=== PATIENT | male | born 1950 | race Caucasian/White ===

== ENCOUNTER → 2016-08-09 | Outpatient (CLI) | payer MEDICARE ==
[2016-08-09 09:15] LABS: Basophils % (A) 1 %; CH 33.2; CHCM 34.2; Eosinophils # (A) 0.1 k/uL (0-0.7); Eosinophils % (A) 3 %; HCT 39.4 % (39.0-53.0); HGB 12.8 gm/dL (13.0-17.5); Luc # (Auto) 0.11; Luc % (Auto) 2; Lymphocytes # (A) 1.1 k/uL (1.0-4.8); Lymphocytes % (A) 23 %; MCH 31.6 pg (25.0-35.0); MCHC 32.4 g/dL (31.0-37.0); MCV 97.5 fL (80.0-100.0); Mean Platelet Volume 7.4; Monocytes # (A) 0.3 k/uL (0-1.0); Monocytes % (A) 7 %; Neutrophils # (A) 3.1 k/uL (1.3-7.7); Neutrophils % (A) 65 %; RBC 4.04 m/uL (4.30-5.90); RDW 13.1 % (11.5-15.5); WBC 4.8 k/uL (3.8-10.6); WBC (Perox) 5.35
[2016-08-09 09:52] LABS: Anion Gap 5 mmol/L; Blood Urea Nitrogen 13 mg/dL (9-20); Carbon Dioxide 29 mmol/L (22-30); Chloride 102 mmol/L (98-107); Non-African American GFR(MDRD) >60 (>60 ml/min/1.73 sqM); Potassium 5.1 mmol/L (3.5-5.1); Sodium 136 mmol/L (137-145)
== END | disposition home or self-care (01) ==
LOC: LABPAT 08:30
PROVIDERS: ATTEND Internal Medicine Cardiovascular Disease
DX: Z01.812 Encounter for preprocedural laboratory examination (principal); E78.2 Mixed hyperlipidemia; R07.2 Precordial pain
CPT/HCPCS: 36415; 80051; 80061; 82565; 84450; 84460; 84520; 85025

== ENCOUNTER → 2016-08-09 | Outpatient (CLI) | payer MEDICARE ==
[2016-08-09 09:52] LABS: ALT 32 U/L (21-72); AST 20 U/L (17-59); Cholesterol 166 mg/dL (<200); HDL Cholesterol 84 mg/dL (40-60); Triglycerides 69 mg/dL (<150)
== END | disposition home or self-care (01) ==
LOC: LABWHC1 08:25
PROVIDERS: ATTEND Internal Medicine Cardiovascular Disease
DX: E78.2 Mixed hyperlipidemia (principal); R07.2 Precordial pain
CPT/HCPCS: 36415; 80061; 84450; 84460

== ENCOUNTER 2016-08-17 06:15 | Day surgery (SDC) | payer MEDICARE ==
[2016-08-14 16:37] VITALS: BMI 27.1
[~2016-08-17 06:15] MED LIST: ALPRAZolam 0.25 MG TAB PO PRN; ASPIRIN 325 MG TAB PO ONE; SODIUM CHLORIDE 0.9% 1,000 ML in EMPTY BAG 1 BAG IV ONE
[2016-08-17] MEDS ORDERED: LIDOCAINE 2% INJ 20 MG/ML (20 ML MDV) ONE (07:13)
[2016-08-17] MEDS ORDERED: MIDAZOLAM 2 MG/2 ML VIAL ONE ×2 (07:15→08:10)
[2016-08-17] MEDS: MIDAZOLAM 2 MG/2 ML VIAL IV ONE ×2 (07:28→08:01)
[2016-08-17] MEDS ORDERED: BIVALIRUDIN BOLUS 250 MG/50 ML IV ONE (07:52)
[2016-08-17] MEDS ORDERED: BIVALIRUDIN 250 MG in SODIUM CHLORIDE 0.9% 50 ML IV ONE (07:53)
[2016-08-17] MEDS ORDERED: PRASUGREL 10 MG TAB ONE (08:02)
[2016-08-17] MEDS: NITROGLYCERIN 1000MCG/10ML SYRINGE INTRACORON ONE ×2 (08:04→08:19)
[2016-08-17] MEDS ORDERED: PRASUGREL 10 MG TAB PO ONE (08:06)
[2016-08-17] MEDS ORDERED: MIDAZOLAM 2 MG/2 ML VIAL IV ONE (08:11)
[2016-08-17] MEDS ORDERED: SODIUM CHLORIDE 0.9% (PF) 10 ML VIAL ONE (08:17)
[2016-08-17] MEDS ORDERED: niCARdipine 25 MG/10 ML VIAL ONE (08:17)
[2016-08-17] MEDS ORDERED: niCARdipine Syringe (1,000 mcg/10 mL) INTRACORON ONE (08:19)
--- NOTE | 2016-08-17 08:21 | CC ---
DATE OF SERVICE: INDICATION: Chest pressure with abnormal stress test showing ischemia in LAD distribution. PROCEDURE NOTE: After obtaining informed consent, left heart catheterization and coronary angiogram were performed via the right femoral artery using standard Sonny catheters. Patient tolerated the procedure well without any obvious immediate complications. FINDINGS: 1. HEMODYNAMICS: Left ventricular end-diastolic pressure is 14 to 16 mm. There is no significant gradient across the aortic valve. 2. LEFT VENTRICULOGRAM: Left ventriculogram was not performed. 3. ANGIOGRAPHIC DATA: Left main coronary artery: Left main coronary artery is normal, ( ) is free of stenosis. It divides into left anterior descending coronary artery and circumflex coronary artery. LAD shows a 70% to 80% stenosis in its mid portion. Circumflex coronary artery and its branches are free of significant stenosis. Right coronary artery is a large dominant vessel and is free of stenosis. CONCLUSIONS: A 70% to 80% stenosis of mid left anterior descending coronary artery. PLAN: The patient has symptoms ischemia in LAD and has a lesion in LAD. Dr. Nance the on-call employee benefits manager, will perform angioplasty of the same.
--- NOTE | 2016-08-17 08:23 | LTR ---
August 17, 2016 TRIPP HUNG DO RE: Donta Chakraborty Dear Dr. Hung: I performed a cardiac catheterization on Donta Chakraborty. A detailed catheterization note is enclosed for your records. In brief, Mr. Chakraborty had exertional chest pain and abnormal stress showing ischemia and LAD distribution and cardiac catheterization shows a 70% to 80% stenosis in mid LAD and he will have angioplasty and stent placement of the same. Thank you for giving us the privilege to participate in the care of this pleasant gentleman. Sincerely, TING WHITE MD
[2016-08-17] MEDS ORDERED: RX INFO: IV CONTRAST WAS GIVEN 1 EACH MISC MISCELLANE PRN (08:29)
[2016-08-17] MEDS ORDERED: MAG HYDROX/AL HYDROX/SIMETH 30 ML CUP PO PRN (08:29)
[2016-08-17] MEDS ORDERED: NITROGLYCERIN SL TABS 0.4 MG TAB SUBLINGUAL PRN (08:29)
[2016-08-17] MEDS ORDERED: ZOLPIDEM 5 MG TAB PO PRN (08:29)
[2016-08-17] MEDS ORDERED: IOHEXOL 350 MG/ML 100 ML BOTTLE INJ ONE (08:30)
[2016-08-17] MEDS ORDERED: SODIUM CHLORIDE 0.9% 1,000 ML IV SCH (08:30)
[2016-08-17] MEDS: CITALOPRAM HYDROBROMIDE 20 MG TAB PO SCH (09:39)
[2016-08-17] MEDS: ASPIRIN 325 MG TAB PO SCH (09:39)
[2016-08-17] MEDS: LISINOPRIL 20 MG TAB PO SCH (09:39)
[2016-08-17] MEDS: HYDROCHLOROTHIAZIDE 25 MG TAB PO SCH (09:39)
[2016-08-17] MEDS: amLODIPine 5 MG TAB PO SCH (09:39)
--- NOTE | 2016-08-17 10:21 | PTCA ---
DATE OF SERVICE: 08/17/2016 PERCUTANEOUS CORONARY INTERVENTION PERFORMING PHYSICIAN: Zain Nance MD, anesthesiologist and critical care. PROCEDURE PERFORMED: 1. Successful stenting of the proximal left anterior descending artery using 2.5 x 15 mm Xience ORIN which was postdilated using 3 mm noncompliant balloon with a good angiographic result. 2. Intravascular ultrasound (IVUS) of the left anterior descending artery. INDICATION: This is a pleasant 66-year-old gentleman with hypertension who sees Dr. Bhandari who was experiencing chest discomfort and underwent a stress test showed ischemia in the anterior wall. APPROACH: Right common femoral artery. COMPLICATIONS: None. LEVEL OF SEDATION: Moderate. PROCEDURE DESCRIPTION: Please refer to diagnostic heart catheterization that was performed by Dr. Bhandari. After the diagnostic heart catheterization was performed, we decided to pursue with intervention on the left anterior descending artery. Anticoagulation was initiated using Angiomax. Subsequently, I took XB35 LAD guide and the left main was engaged. A run-through wire was used to wire the left anterior descending artery. Subsequently I did direct stenting on the lesion using 2.5 x 20 x 15 mm Xience ORIN, where the stent was positioned under fluoroscopy guidance and it was deployed. The following angiogram showed that the stent seems to be slightly undersized so I postdilated using 2.75 mm noncompliant balloon which was inflated under 18 atmospheres for 20 seconds. I did after that intravascular ultrasound (IVUS) of the LAD, which showed that the stent was not well ( ) to the wall. At that point, I decided to post dilate using 3 mm noncompliant balloon which was advanced over the wire and the balloon was inflated under 18 atmospheres for another 20 seconds. After that, I did intravascular ultrasound again which showed that the stent was well ( ) to the wall. At that point, I decided to stop. The following angiogram showed good angiographic results without perforation and without dissection with excellent flow. The procedure was completed without any complication. Postprocedure management will be: 1. Dual antiplatelet therapy. 2. Risk factor modifications. 3. Follow up with the patient.
[2016-08-17 16:56] LABS: Glucose,Whole Blood 84 mg/dL (75-99)
[2016-08-17] MEDS: cloNIDine HCL 0.1 MG TAB PO SCH ×2 (20:21→21:57)
[2016-08-17] MEDS ORDERED: ATORVASTATIN 80 MG TAB PO SCH (21:00)
[2016-08-18 02:34] VITALS: RESP 18
[2016-08-18 06:14] LABS: Non-African American GFR(MDRD) >60 (>60 ml/min/1.73 sqM)
[2016-08-18] MEDS: HYDROCHLOROTHIAZIDE 25 MG TAB PO SCH (08:18)
[2016-08-18] MEDS: amLODIPine 5 MG TAB PO SCH (08:18)
[2016-08-18] MEDS: CITALOPRAM HYDROBROMIDE 20 MG TAB PO SCH (08:18)
[2016-08-18] MEDS: LISINOPRIL 20 MG TAB PO SCH (08:18)
[2016-08-18] MEDS: ASPIRIN 325 MG TAB PO SCH (08:19)
[2016-08-18 08:36] LABS: Basophils % (A) 0 %; CH 33.2; Eosinophils # (A) 0.1 k/uL (0-0.7); Eosinophils % (A) 1 %; HCT 39.9 % (39.0-53.0); HDW 2.28; HGB 13.5 gm/dL (13.0-17.5); Luc # (Auto) 0.15; Luc % (Auto) 2; Lymphocytes # (A) 1.2 k/uL (1.0-4.8); Lymphocytes % (A) 16 %; MCH 33.3 pg (25.0-35.0); MCV 98.1 fL (80.0-100.0); Monocytes # (A) 0.4 k/uL (0-1.0); Monocytes % (A) 6 %; Neutrophils # (A) 5.5 k/uL (1.3-7.7); Neutrophils % (A) 74 %; RBC 4.06 m/uL (4.30-5.90); RDW 13.1 % (11.5-15.5); WBC 7.4 k/uL (3.8-10.6); WBC (Perox) 7.92
[2016-08-18] MEDS ORDERED: PRASUGREL 10 MG TAB PO SCH (09:00)
[2016-08-18] MEDS ORDERED: ATENOLOL 12.5 MG TAB PO SCH (10:30)
[2016-08-18 11:28] VITALS: BP 143/87; PULSE 57; TEMP 97.8
[2016-08-18 12:07] LABS: Glucose,Whole Blood 115 mg/dL (75-99)
--- NOTE | 2016-08-19 10:18 | DS ---
DATE OF ADMISSION: 08/17/2016 DATE OF DISCHARGE: 08/18/2016 PROCEDURES PERFORMED: 1. Left heart catheterization. 2. Angioplasty with stent placement of left anterior descending. HOSPITAL COURSE: A 66-year-old gentleman who presented to me with symptoms of unstable angina and an abnormal stress test that showed ischemia in LAD distribution. The patient underwent cardiac catheterization that revealed significant stenosis involving mid left anterior descending artery for which he underwent angioplasty with drug eluting stent placement. The patient had developed a hematoma in the groin last night, which they put pressure on and obtained hemostasis. This morning he is free of symptoms, ambulating without any problems. On exam, afebrile. Heart rate is 60 beats per minute, blood pressure is 150/80, respirations 18, O2 sat is 98%. There is no jugular venous distention. Chest exam reveals good air entry bilaterally. Heart exam reveals first and second heart sounds. No gallop. No murmur. Abdomen is soft. Exam of the extremities did not reveal any edema. Peripheral pulses are felt. Right groin shows a hematoma. There is no bruit. No pulsatile masses. It is nontender. Foot pulses intact. He had a creatinine checked this morning, that appears normal and EKG is pending. ASSESSMENT: 1. Coronary artery disease, status post angioplasty of left anterior descending. 2. Right groin hematoma. DISCHARGE MEDICATIONS: Patient will go home on: 1. Norvasc 5 mg daily. 2. Lisinopril 20 mg daily. 3. Celexa. 4. Hydrochlorothiazide 25 mg daily. 5. Catapres. 6. Effient 10 mg daily. 7. Sublingual nitroglycerin p.r.n. basis. 8. Atorvastatin 80 mg daily. 9. Aspirin. FOLLOW-UP: Patient will be seen in my office in a week's time. I will discharge him home later this afternoon if he is able to ambulate and the groin hematoma remains stable and the CBC shows that there is no drop in hemoglobin.
== END 2016-08-18 13:01 | disposition home or self-care (01) ==
LOC: CATHCVL 06:15 → 6SEL 08:23 → CATHCVL 08-18 13:01
PROVIDERS: ATTEND Internal Medicine Cardiovascular Disease
DX: I25.110 Atherosclerotic heart disease of native coronary artery with unstable angina pectoris (principal); E78.2 Mixed hyperlipidemia; I11.9 Hypertensive heart disease without heart failure; Z79.899 Other long term (current) drug therapy; Z87.891 Personal history of nicotine dependence; Z82.49 Family history of ischemic heart disease and other diseases of the circulatory system; Z79.1 Long term (current) use of non-steroidal anti-inflammatories (NSAID); Z79.82 Long term (current) use of aspirin
CPT/HCPCS: 92978; 93458; 82565; 85025; C9600; C1887; C1725 ×2; C1894; C1753; C1874; C1769; J2250; Q9967; J0583

== ENCOUNTER → 2016-09-05 | Outpatient (CLI) | payer MEDICARE ==
--- NOTE | 2016-09-05 10:01 | US ---
EXAMINATION TYPE: US lower ext pseudo artery RT DATE OF EXAM: 09/05/2016 9:36 AM COMPARISON: NONE CLINICAL HISTORY: T14.8 Hematoma Right Side. Heart cath done 1 week ago, bruising and tender now TECHNOLOGIST IMPRESSION: Normal appearing vessels seen within right groin, no obvious pseudoaneurysm , hematoma or AV fistula noted. No abnormal fluid collection is seen to suggest hematoma. No suspicious outpouching is seen to sugges t pseudoaneurysm. No suspicious arterial venous communication is seen to suggest fistula. IMPRESSION: As above
== END | disposition home or self-care (01) ==
LOC: RADUSWWP 07:57
PROVIDERS: ATTEND Internal Medicine Cardiovascular Disease
DX: I72.9 Aneurysm of unspecified site (principal); I77.0 Arteriovenous fistula, acquired
CPT/HCPCS: 93975

== ENCOUNTER → 2017-11-02 | Outpatient (CLI) | payer MEDICARE ==
[2017-11-02 08:36] LABS: HCT 37.5 % (39.0-53.0); HGB 12.7 gm/dL (13.0-17.5); MCH 31.8 pg (25.0-35.0); MCHC 33.8 g/dL (31.0-37.0); MCV 94.1 fL (80.0-100.0); Mean Platelet Volume 7.5; Platelet Count 277 k/uL (150-450); RBC 3.98 m/uL (4.30-5.90); RDW 13.2 % (11.5-15.5)
== END | disposition home or self-care (01) ==
LOC: LABWHC1 07:42
PROVIDERS: ATTEND Nurse Practitioner Adult Health
DX: I48.91 Unspecified atrial fibrillation (principal)
CPT/HCPCS: 36415; 84443; 85027

== ENCOUNTER → 2018-12-31 | Outpatient (CLI) | payer MEDICARE | END | disposition home or self-care (01) | LOC: LABWHC1 09:01 | PROVIDERS: ATTEND Urology | DX: R97.20 Elevated prostate specific antigen [PSA] (principal) | CPT/HCPCS: 36415; 84153 ==

== ENCOUNTER → 2019-05-01 | Outpatient (CLI) | payer MEDICARE ==
[2019-05-01 23:35] LABS: Chol/HDL Ratio 2.14; LDL Cholesterol,Calculated 42.6 mg/dL (0.0-131.0); VLDL Calculation 13.4 mg/dL (5.00-40.00)
== END | disposition home or self-care (01) ==
LOC: LABWHC1 09:31
PROVIDERS: ATTEND Internal Medicine Cardiovascular Disease
DX: E78.2 Mixed hyperlipidemia (principal)
CPT/HCPCS: 36415; 80061; 84450; 84460

== ENCOUNTER → 2021-04-14 | Outpatient (CLI) | payer MEDICARE ==
[2021-04-15 03:24] LABS: Chol/HDL Ratio 1.75; LDL Cholesterol,Calculated 28.8 mg/dL (0.0-131.0); VLDL Calculation 10.2 mg/dL (5.00-40.00)
== END | disposition home or self-care (01) ==
LOC: LABWHC1 07:58
PROVIDERS: ATTEND Internal Medicine Cardiovascular Disease
DX: E78.2 Mixed hyperlipidemia (principal)
CPT/HCPCS: 36415; 80061; 84450; 84460

== ENCOUNTER 2021-04-22 19:31 | Emergency (ER) | payer OTHER, MEDICARE ==
[2021-04-22 19:46] VITALS: BP 137/75; PULSE 84; RESP 20; TEMP 98.3
[2021-04-22] MEDS ORDERED: IBUPROFEN 400 MG TAB PO STA (20:43)
[2021-04-22] MEDS ORDERED: ACETAMINOPHEN TAB 500 MG TAB PO STA (20:43)
--- NOTE | 2021-04-22 21:47 | XR ---
EXAMINATION TYPE: XR ankle complete RT, XR foot complete RT DATE OF EXAM: 04/22/2021 CLINICAL HISTORY: Pain TECHNIQUE: Frontal, lateral and oblique images of the right without ankle are obtained. COMPARISON: None. FINDINGS: Ankle: Mild soft tissue prominence about the ankle. There is no acute fracture/dislocation evident in the right ankle. The ankle mortise appears within normal limits. The overlying soft tissue appears unremarkable. Next Foot: Alignment, mineralization and joint spaces are within normal limits. There is no acute fracture or dislocation. There is no radiopaque foreign body. Tiny plantar calcaneal spur. No soft tissue swe lling. IMPRESSION: Mild soft tissue prominence about the ankle. There is no acute fracture or dislocation i n the right foot or ankle.
--- NOTE | 2021-04-22 21:59 | ED ---
Lower Extremity Injury HPI - General Chief Complaint: Extremity Injury, Lower Stated Complaint: [facility]-Injury right foot Time Seen by Provider: 04/22/21 20:23 Source: patient Mode of arrival: wheelchair Limitations: no limitations - History of Present Illness Initial Comments: 70-year-old male presents to the emergency department with a chief complaint of right ankle injury. This occurred about one hour prior to arrival while he was at work. Patient reports his ankle slipped and he suffered a inversion injury he felt a popping sensation. He reports no swelling along the lateral malleolus. Denies any ecchymosis or erythema. Denies taking medication to alleviate the symptoms. Denies any weakness or paresthesias. Reports pain is exacerbated with weightbearing and movement. Alleviated at rest. - Related Data Home Medications Medication Instructions Recorded Confirmed Citalopram Hydrobromide [CeleXA] 40 mg PO DAILY 08/14/16 08/17/16 amLODIPine BESYLATE [Norvasc] 5 mg PO DAILY 08/14/16 08/17/16 hydroCHLOROthiazide 25 mg PO DAILY 08/14/16 08/17/16 lisinopriL [Zestril] 20 mg PO DAILY 08/14/16 08/17/16 cloNIDine HCL [Catapres] 0.1 mg PO HS 08/17/16 08/17/16 Previous Rx's Medication Instructions Recorded Aspirin 325 mg PO DAILY #30 tab 08/18/16 Atorvastatin [Lipitor] 80 mg PO HS #30 tab 08/18/16 Nitroglycerin Sl Tabs [Nitrostat] 0.4 mg SUBLINGUAL Q5M PRN #25 tab 08/18/16 Prasugrel [Effient] 10 mg PO DAILY #30 tab 08/18/16 atenoloL [Tenormin] 12.5 mg PO DAILY #30 dose 08/18/16 Allergies Allergy/AdvReac Type Severity Reaction Status Date / Time tramadol Allergy heart Verified 04/22/21 19:46 failure cyclobenzaprine AdvReac Nausea & Verified 04/22/21 19:46 [From Flexeril] Vomiting naproxen [From Naprosyn] AdvReac Nausea & Verified 04/22/21 19:46 Vomiting Review of Systems ROS Statement: Those systems with pertinent positive or pertinent negative responses have been documented in the HPI. ROS Other: All systems not noted in ROS Statement are negative. Past Medical History Past Medical History: Chest Pain / Angina, Hypertension History of Any Multi-Drug Resistant Organisms: None Reported Past Surgical History: Cholecystectomy, Orthopedic Surgery Additional Past Surgical History / Comment(s): rotator cuff left shoulder, Past Anesthesia/Blood Transfusion Reactions: No Reported Reaction Past Psychological History: Anxiety Smoking Status: Never smoker Past Alcohol Use History: Daily Past Drug Use History: None Reported - Past Family History Mother Family Medical History: Cancer Brother(s) Family Medical History: Cancer General Exam Limitations: no limitations General appearance: alert, in no apparent distress Head exam: Present: atraumatic, normocephalic, normal inspection Eye exam: Present: normal appearance, PERRL, EOMI Pupils: Present: normal accommodation ENT exam: Present: normal exam, normal oropharynx, mucous membranes moist Neck exam: Present: normal inspection, full ROM. Absent: tenderness Respiratory exam: Present: normal lung sounds bilaterally. Absent: respiratory distress Cardiovascular Exam: Present: regular rate, normal rhythm, normal heart sounds Extremities exam: Present: tenderness (Lateral malleolus swelling of the right foot), normal capillary refill, joint swelling (Right ankle), other (Palpable DP and PT bilaterally.). Absent: normal inspection (Lateral malleolus swelling of the right foot), full ROM (Limited range of motion with inversion), pedal edema, calf tenderness Back exam: Present: normal inspection, full ROM. Absent: tenderness Neurological exam: Present: alert, oriented X3 Psychiatric exam: Present: normal affect, normal mood Skin exam: Present: warm, dry, intact, normal color Course Vital Signs 04/22/21 19:43 Temperature 98.3 F Pulse Rate 84 Respiratory 20 Rate Blood Pressure 137/75 O2 Sat by Pulse 99 Oximetry Medical Decision Making - Medical Decision Making 70-year-old male presents to emergency Department with a chief complaint of ankle injury. X-ray shows soft tissue swelling but no signs of fracture or dislocation. He is otherwise neurovascularly intact in the right leg. Carroll wrap was applied. Patient likely sprints and ankle sprain. He requested Tylenol Motrin which was given to him. Return parameters were discussed patient is understanding and agreeable. Orthopedic follow-up. Disposition Clinical Impression: Right ankle sprain Disposition: HOME SELF-CARE Condition: Stable Instructions (If sedation given, give patient instructions): Ankle Sprain (ED) Additional Instructions: Please return to the Emergency Department if symptoms worsen or any other con cerns. Is patient prescribed a controlled substance at d/c from ED?: No Referrals: Cj Hung DO [Primary Care Provider] - 1-2 days Otis Campos MD [Medical Doctor] - 1-2 days Time of Disposition: 21:59
== END 2021-04-22 22:09 | disposition home or self-care (01) ==
LOC: EC 19:31
DX: S93.491A Sprain of other ligament of right ankle, initial encounter (principal); I10 Essential (primary) hypertension; F41.9 Anxiety disorder, unspecified; Z79.82 Long term (current) use of aspirin; Z88.1 Allergy status to other antibiotic agents; Z88.6 Allergy status to analgesic agent; Z90.49 Acquired absence of other specified parts of digestive tract; W01.0XXA Fall on same level from slipping, tripping and stumbling without subsequent striking against object, initial encounter
CPT/HCPCS: 99283

== ENCOUNTER 2022-03-26 16:33 | Observation (INO) | payer MEDICARE ==
[2022-03-26] MEDS ORDERED: SODIUM CHLORIDE 0.9% 1,000 ML IV STA (17:04)
[2022-03-26] MEDS ORDERED: NITROGLYCERIN SL TABS 0.4 MG TAB SUBLINGUAL STA (17:04)
[2022-03-26] MEDS ORDERED: ONDANSETRON 4 MG/2 ML VIAL IVP STA (17:09)
--- NOTE | 2022-03-26 17:48 | ED ---
General Adult HPI - General Chief complaint: Chest Pain Stated complaint: Heart Issues,sent by doctor Time Seen by Provider: 03/26/22 16:48 Source: patient Mode of arrival: wheelchair - History of Present Illness Initial comments: Patient is a 71-year-old male who presents to emergency department after being seen originally at an outside emergency department for multiple complaints. Patient was having substernal chest pain that he describes as a pain component with pressure over the inferior aspect of his sternum. Denies any radiation. No known palliative or provocative factors. This is been ongoing for multiple days, in addition to a productive cough of yellowish-green sputum as well as nausea and generalized abdominal discomfort. He has an lack of an appetite. No other acute complaints at this time. Has a history of cardiac disease with stenting. Patient states he is on Eliquis for many years. Is uncertain why he is on this blood thinning medication. Workup at the outpatient facility was relatively unremarkable, however EKG did show mild ST segment depressions in V4, V5. Unknown chronicity. Troponin was undetectable. Vital signs within normal limits. Patient received 324 mg of aspirin as well as 1 nitroglycerin tablet which patient states resolved his pain. Currently he states he only has chest pressure. 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 He sees Dr. Bhandari. States he feels better than earlier, however still is lack of an appetite. Presents for further evaluation at this time. States he is compliant with all medications. No current chest pain, just a very mild chest pressure. - Related Data Home Medications Medication Instructions Recorded Confirmed amLODIPine BESYLATE [Norvasc] 5 mg PO DAILY 08/14/16 03/26/22 hydroCHLOROthiazide 25 mg PO DAILY 08/14/16 03/26/22 lisinopriL [Zestril] 20 mg PO DAILY 08/14/16 03/26/22 Apixaban [Eliquis] 5 mg PO BID 03/26/22 03/26/22 Aspirin EC [Ecotrin Low Dose] 81 mg PO BID 03/26/22 03/26/22 Atorvastatin Calcium [Lipitor] 40 mg PO DAILY 03/26/22 03/26/22 Metoprolol Tartrate [Lopressor] 25 mg PO BID 03/26/22 03/26/22 Potassium Chloride [Klor-Con M10] 10 meq PO DAILY 03/26/22 03/26/22 Allergies Allergy/AdvReac Type Severity Reaction Status Date / Time tramadol Allergy heart Verified 03/26/22 18:31 failure cyclobenzaprine AdvReac Nausea & Verified 03/26/22 18:31 [From Flexeril] Vomiting naproxen [From Naprosyn] AdvReac Nausea & Verified 03/26/22 18:31 Vomiting Review of Systems ROS Statement: Those systems with pertinent positive or pertinent negative responses have been documented in the HPI. Review of Systems: CONST: Denies fever EYES: Denies blurry vision ENT: Endorses nasal congestion C/V: Endorses chest pain, resolved RESP: Endorses cough GI: Endorses nonspecific abdominal pain : Denies dysuria SKIN: Denies rash. MSK: Denies joint pain. NEURO: Denies headache ROS Other: All systems not noted in ROS Statement are negative. Past Medical History Past Medical History: Chest Pain / Angina, Hypertension History of Any Multi-Drug Resistant Organisms: None Reported Past Surgical History: Cholecystectomy, Orthopedic Surgery Additional Past Surgical History / Comment(s): rotator cuff left shoulder, Past Anesthesia/Blood Transfusion Reactions: No Reported Reaction Past Psychological History: Anxiety Smoking Status: Never smoker Past Alcohol Use History: Daily Past Drug Use History: None Reported - Past Family History Mother Family Medical History: Cancer Brother(s) Family Medical History: Cancer General Exam - General Exam Comments Initial Comments: General: Appears in no acute distress. HEAD: Normal with no signs of head trauma. EYES: PERRLA, EOMI, conjunctiva normal, no discharge. ENT: Hearing grossly intact, normal oropharynx. RESPIRATORY: Clear breath sounds bilaterally. No wheezes, rales, or rhonchi. C/V: Irregular rate and rhythm. S1 and S2 auscultated. Peripheral pulses 2+ intact throughout. No peripheral edema. ABD: Abd is soft, nontender, nondistended. No guarding. No peritoneal signs. No rebound tenderness. EXT: Normal range of motion, no obvious deformity SKIN: No rashes or lesions observed on exposed skin. NEURO: Alert and oriented 4. No focal deficits. Course Vital Signs 03/26/22 03/26/22 03/26/22 16:42 17:14 17:26 Temperature 99.0 F 99.6 F Pulse Rate 86 69 Respiratory 16 16 Rate Blood Pressure 109/67 118/81 O2 Sat by Pulse 97 98 Oximetry 03/26/22 18:49 Temperature Pulse Rate 73 Respiratory 16 Rate Blood Pressure 121/75 O2 Sat by Pulse 100 Oximetry Medical Decision Making - Medical Decision Making Based on the patient's presentation and physical exam, patient presents for cardiac evaluation. Symptoms do appear to be related to possible upper respiratory illness such as Covid which was not tested for the outside facility. We will repeat laboratory studies, as was: Flu testing. We will repeat troponin. EKG appears to be showing chronic changes at this time. Chest x-ray from the outside facility will be up-to-date, however it showed no acute cardio primary process based on the read. Troponin at the outside facility was negative. Patient is already on Eliquis. Chest pain has resolved, now just having a very mild pressure sensation. Patient already received 324 mg of aspirin. We will trial an additional nitroglycerin tablet at this time, provided him with IV Zofran as well as IV fluids. He was in agreement this plan. Cardiac monitoring will be continued. Patient's EKG does show atrial fibrillation, unknown if this is new. Patient has been on Elilquis for multiple years. I'm unable to obtain an EKG from within the last 5 years that will open, as there is a malfunction in our comp uter system at this time. No prior documentation of atrial fibrillation in our EMR. Patient is uncertain if he has a history of atrial fibrillation. Patient is rate controlled at this time. Is already on anticoagulation. EKG shows chronic ST segment depressions in V4-V5. Chest x-ray shows no acute cardiopulmonary process that was obtained from previous emergency department earlier today. Laboratory studies are remarkable for a mild anemia with hemoglobin of 12.4. Mild hyponatremia of 131. Also remarkable for a undetectable troponin as well as a positive Covid test. On reevaluation, patient remains asymptomatic at this time. Vital signs remained within normal limits. I did discuss with him that with his cardiac history, and his heart score being moderate at 5, I would like to admit him to the hospital for cardiac observation. He was in agreement this plan. We did discuss Paxlovid treatment and he declined. He is not hypoxic. He is in no respiratory distress. His only being admitted for his cardiac observation. Already received aspirin outpatient. We'll restart his home medication including Eliquis. Per patient, echo was obtained within last 2 weeks outpatient. Cardiology was consulted. I spoke with the admitting physician, observation veterinary surgeon Dr. Lion who accepted the patient. Patient was admitted in stable condition to telemetry. - Lab Data Result diagrams: 03/26/22 17:20 03/26/22 17:20 Lab Results 03/26/22 03/26/22 03/26/22 Range/Units 17:20 17:20 17:20 WBC 6.2 (3.8-10.6) k/uL RBC 3.92 L (4.30-5.90) m/uL Hgb 12.4 L (13.0-17.5) gm/dL Hct 37.4 L (39.0-53.0) % MCV 95.3 (80.0-100.0) fL MCH 31.7 (25.0-35.0) pg MCHC 33.3 (31.0-37.0) g/dL RDW 12.8 (11.5-15.5) % Plt Count 195 (150-450) k/uL MPV 7.2 Neutrophils % 79 % Lymphocytes % 6 % Monocytes % 11 % Eosinophils % 0 % Basophils % 1 % Neutrophils # 4.9 (1.3-7.7) k/uL Lymphocytes # 0.4 L (1.0-4.8) k/uL Monocytes # 0.7 (0-1.0) k/uL Eosinophils # 0.0 (0-0.7) k/uL Basophils # 0.1 (0-0.2) k/uL PT 11.8 (9.0-12.0) sec INR 1.1 (<1.2) APTT 32.2 H (22.0-30.0) sec Sodium (137-145) mmol/L Potassium (3.5-5.1) mmol/L Chloride (98-107) mmol/L Carbon Dioxide (22-30) mmol/L Anion Gap mmol/L BUN (9-20) mg/dL Creatinine (0.66-1.25) mg/dL Est GFR (CKD-EPI)AfAm (>60 ml/min/1.73 sqM) Est GFR (CKD-EPI)NonAf (>60 ml/min/1.73 sqM) Glucose (74-99) mg/dL Calcium (8.4-10.2) mg/dL Magnesium (1.6-2.3) mg/dL Total Bilirubin (0.2-1.3) mg/dL AST (17-59) U/L ALT (4-49) U/L Alkaline Phosphatase (38-126) U/L Troponin I (0.000-0.034) ng/mL Total Protein (6.3-8.2) g/dL Albumin (3.5-5.0) g/dL Amylase (30-110) U/L Lipase (23-300) U/L Urine Color Yellow Urine Appearance Clear (Clear) Urine pH 6.0 (5.0-8.0) Ur Specific [place] 1.028 (1.001-1.035) Urine Protein Trace H (Negative) Urine Glucose (UA) Negative (Negative) Urine Ketones Negative (Negative) Urine Blood Large H (Negative) Urine Nitrite Negative (Negative) Urine Bilirubin Negative (Negative) Urine Urobilinogen 4.0 (<2.0) mg/dL Ur Leukocyte Esterase Negative (Negative) Urine RBC 36 H (0-5) /hpf Urine WBC 1 (0-5) /hpf Ur Squamous Epith Cells <1 (0-4) /hpf Urine Bacteria Rare H (None) /hpf Urine Mucus Moderate H (None) /hpf Coronavirus (PCR) (Not Detectd) Influenza Type A RNA (Not Detectd) Influenza Type B (PCR) (Not Detectd) 03/26/22 03/26/22 03/26/22 Range/Units 17:20 17:20 17:20 WBC (3.8-10.6) k/uL RBC (4.30-5.90) m/uL Hgb (13.0-17.5) gm/dL Hct (39.0-53.0) % MCV (80.0-100.0) fL MCH (25.0-35.0) pg MCHC (31.0-37.0) g/dL RDW (11.5-15.5) % Plt Count (150-450) k/uL MPV Neutrophils % % Lymphocytes % % Monocytes % % Eosinophils % % Basophils % % Neutrophils # (1.3-7.7) k/uL Lymphocytes # (1.0-4.8) k/uL Monocytes # (0-1.0) k/uL Eosinophils # (0-0.7) k/uL Basophils # (0-0.2) k/uL PT (9.0-12.0) sec INR (<1.2) APTT (22.0-30.0) sec Sodium 131 L (137-145) mmol/L Potassium 4.0 (3.5-5.1) mmol/L Chloride 95 L (98-107) mmol/L Carbon Dioxide 23 (22-30) mmol/L Anion Gap 13 mmol/L BUN 22 H (9-20) mg/dL Creatinine 1.26 H (0.66-1.25) mg/dL Est GFR (CKD-EPI)AfAm 65 (>60 ml/min/1.73 sqM) Est GFR (CKD-EPI)NonAf 56 (>60 ml/min/1.73 sqM) Glucose 89 (74-99) mg/dL Calcium 8.6 (8.4-10.2) mg/dL Magnesium 1.6 (1.6-2.3) mg/dL Total Bilirubin 0.9 (0.2-1.3) mg/dL AST 27 (17-59) U/L ALT 14 (4-49) U/L Alkaline Phosphatase 125 (38-126) U/L Troponin I <0.012 (0.000-0.034) ng/mL Total Protein 6.8 (6.3-8.2) g/dL Albumin 4.0 (3.5-5.0) g/dL Amylase 67 (30-110) U/L Lipase 207 (23-300) U/L Urine Color Urine Appearance (Clear) Urine pH (5.0-8.0) Ur Specific [place] (1.001-1.035) Urine Protein (Negative) Urine Glucose (UA) (Negative) Urine Ketones (Negative) Urine Blood (Negative) Urine Nitrite (Negative) Urine Bilirubin (Negative) Urine Urobilinogen (<2.0) mg/dL Ur Leukocyte Esterase (Negative) Urine RBC (0-5) /hpf Urine WBC (0-5) /hpf Ur Squamous Epith Cells (0-4) /hpf Urine Bacteria (None) /hpf Urine Mucus (None) /hpf Coronavirus (PCR) Detected A (Not Detectd) Influenza Type A RNA (Not Detectd) Influenza Type B (PCR) (Not Detectd) 03/26/22 Range/Units 17:20 WBC (3.8-10.6) k/uL RBC (4.30-5.90) m/uL Hgb (13.0-17.5) gm/dL Hct (39.0-53.0) % MCV (80.0-100.0) fL MCH (25.0-35.0) pg MCHC (31.0-37.0) g/dL RDW (11.5-15.5) % Plt Count (150-450) k/uL MPV Neutrophils % % Lymphocytes % % Monocytes % % Eosinophils % % Basophils % % Neutrophils # (1.3-7.7) k/uL Lymphocytes # (1.0-4.8) k/uL Monocytes # (0-1.0) k/uL Eosinophils # (0-0.7) k/uL Basophils # (0-0.2) k/uL PT (9.0-12.0) sec INR (<1.2) APTT (22.0-30.0) sec Sodium (137-145) mmol/L Potassium (3.5-5.1) mmol/L Chloride (98-107) mmol/L Carbon Dioxide (22-30) mmol/L Anion Gap mmol/L BUN (9-20) mg/dL Creatinine (0.66-1.25) mg/dL Est GFR (CKD-EPI)AfAm (>60 ml/min/1.73 sqM) Est GFR (CKD-EPI)NonAf (>60 ml/min/1.73 sqM) Glucose (74-99) mg/dL Calcium (8.4-10.2) mg/dL Magnesium (1.6-2.3) mg/dL Total Bilirubin (0.2-1.3) mg/dL AST (17-59) U/L ALT (4-49) U/L Alkaline Phosphatase (38-126) U/L Troponin I (0.000-0.034) ng/mL Total Protein (6.3-8.2) g/dL Albumin (3.5-5.0) g/dL Amylase (30-110) U/L Lipase (23-300) U/L Urine Color Urine Appearance (Clear) Urine pH (5.0-8.0) Ur Specific [place] (1.001-1.035) Urine Protein (Negative) Urine Glucose (UA) (Negative) Urine Ketones (Negative) Urine Blood (Negative) Urine Nitrite (Negative) Urine Bilirubin (Negative) Urine Urobilinogen (<2.0) mg/dL Ur Leukocyte Esterase (Negative) Urine RBC (0-5) /hpf Urine WBC (0-5) /hpf Ur Squamous Epith Cells (0-4) /hpf Urine Bacteria (None) /hpf Urine Mucus (None) /hpf Coronavirus (PCR) (Not Detectd) Influenza Type A RNA Not Detected (Not Detectd) Influenza Type B (PCR) Not Detected (Not Detectd) - EKG Data -: EKG Interpreted by Me EKG Comments: 12-lead Electrocardiogram Interpretation Note EKG was reviewed and interpreted by myself. 12-lead ECG performed at 1651 is interpreted by me as revealing atrial fibrillation at a rate of 74 beats per minute. [place] is normal. QRS duration is 94 ms, QTc is 407 ms.. There were no acute ST or T wave abnormalities to suggest myocardial ischemia or injury. R wave progression across the precordium was satisfactory. By my interpretation this EKG is non-diagnostic for acute ischemia. The computer at this time will not let me access prior EKGs from 2017, however secretary administrative assistant was able to obtain an EKG from 08/03/2008 from the old system. Current EKG appears similar nature to this old EKG except for the new atrial fibrillation. Mild ST segment depression seen in V3 through V5 once again. These appear to be chronic. Disposition Clinical Impression: Chest pain, COVID-19 virus infection, Nausea, Atrial fibrillation Disposition: ADMITTED IP TO THIS HOSP Condition: Stable Time of Disposition: 19:10
[2022-03-26 18:09] LABS: INR 1.1 (<1.2); Partial Thromboplastin Time 32.2 sec (22.0-30.0); Prothrombin Time 11.8 sec (9.0-12.0)
[2022-03-26 18:16] LABS: Calcium 8.6 mg/dL (8.4-10.2); Magnesium 1.6 mg/dL (1.6-2.3); Total Bilirubin 0.9 mg/dL (0.2-1.3); Total Protein 6.8 g/dL (6.3-8.2)
[2022-03-26 18:27] LABS: Appearance,Urine Clear (Clear); Bacteria,Urine Rare /hpf; Basophils # (A) 0.1 k/uL (0-0.2); Basophils % (A) 1 %; Bilirubin,Urine Negative (Negative); Blood,Urine Large (Negative); Color,Urine Yellow; Eosinophils % (A) 0 %; Glucose,Urine (UA) Negative (Negative); HCT 37.4 % (39.0-53.0); HGB 12.4 gm/dL (13.0-17.5); Ketones,Urine Negative (Negative); Leukocyte Esterase,Urine Negative (Negative); Lymphocytes # (A) 0.4 k/uL (1.0-4.8); Lymphocytes % (A) 6 %; MCH 31.7 pg (25.0-35.0); MCHC 33.3 g/dL (31.0-37.0); MCV 95.3 fL (80.0-100.0); Mean Platelet Volume 7.2; Monocytes # (A) 0.7 k/uL (0-1.0); Monocytes % (A) 11 %; Mucus,Urine Moderate /hpf; Neutrophils # (A) 4.9 k/uL (1.3-7.7); Neutrophils % (A) 79 %; Nitrite,Urine Negative (Negative); Platelet Count 195 k/uL (150-450); Protein,Urine Trace (Negative); RBC 3.92 m/uL (4.30-5.90); RBC,Urine 36 /hpf (0-5); RDW 12.8 % (11.5-15.5); Specific Gravity,Urine 1.028 (1.001-1.035); Squamous Epithelial Cell,Urine <1 /hpf (0-4); WBC 6.2 k/uL (3.8-10.6); WBC,Urine 1 /hpf (0-5)
[2022-03-26] MEDS ORDERED: NALOXONE 0.4 MG/ML 1 ML VIAL IV PRN (19:18)
[2022-03-26] MEDS ORDERED: ONDANSETRON 4 MG/2 ML VIAL IVP PRN (19:18)
[2022-03-26] MEDS: ASPIRIN 81 MG PO SCH (20:53)
[2022-03-26] MEDS: METOPROLOL TARTRATE 25 MG TAB PO SCH (20:53)
[2022-03-26] MEDS: APIXABAN 5 MG TAB PO SCH (20:53)
--- NOTE | 2022-03-26 23:42 | P.HPIM ---
History of Present Illness H&P Date: 03/26/22 The patient is a 70-year-old male with a PMH of hypertension, A. fib on Eliquis, coronary artery disease status post stenting, and hyperlipidemia who was transferred from [facility] where he had presented for multiple complaints. The patient reports that he has been experiencing a constant epigastric aching-like discomfort for the past several days along with a cough productive of yellow/green phlegm. The pain also has a pleuritic component and is worsened with coughing. 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 The patient received nitroglycerin and aspirin at the outside facility which patient states resolved his chest pain. The patient underwent an extensive evaluation at [facility] which was remarkable for EKG showing ST segment depressions in precordial leads. The patient routinely follows with Dr. Bhandari and decided to drive down to [place] for cardiology evaluation once he was informed that he needs further workup. At time of interview, the patient reports that his chest pain had not recurred although he continues to feel fatigued. He denies any known sick contacts. EKG in the emergency room revealed A. fib at 74 bpm with diffuse T-wave flattening and minimal ST segment depression in leads V4 to V5 with T-wave inversions new as compared to EKG from 2017. Laboratory evaluation in the emergency room revealed coronal virus PCR positive, troponin less than 0.012, BUN 22, creatinine 1.26, sodium 131, and chloride 95. The patient did not require supplemental oxygen in the emergency room with SpO2 98% on room air. Review of systems: Pertinent positives and negatives as discussed in HPI, a complete review of systems was performed and all other systems are negative. Physical examination: General: non toxic, no distress, appears at stated age, overweight Derm: no unusual rashes/lesions, warm Head: atraumatic, normocephalic, symmetric Eyes: EOMI, no lid lag, anicteric sclera, pupils equal round reactive to light ENT: Nose and ears atraumatic Neck: No cervical lymphadenopathy, trachea midline, supple Mouth: no lip lesion, mucus membranes moist Cardiovascular: S1S2 reg, no murmur, positive dorsalis pedis pulse bilateral, no edema Lungs: CTA bilateral, no rhonchi, no rales, no accessory muscle use Abdominal: soft, nontender to palpation, no guarding Ext: muscle strength 5 out of 5 in all 4 extremities grossly, no gross muscle atrophy, no contractures, Neuro: CN II-XI grossly intact, no gross focal neuro deficits Psych: Alert, oriented, appropriate affect Assessment/plan Epigastric discomfort with history of coronary artery disease and stenting -Cardiology consult -Trend troponin -Cardiac monitoring -Continue with aspirin -Patient already on Eliquis Acute kidney injury with hypochloremic hyponatremia -Likely due to poor oral intake in setting of acute viral illness -IV fluids and monitor for now COVID-19 infection -Not requiring supplemental oxygen at this time -Vitamin C, vitamin D, zinc -Gentle IV fluids Chronic conditions: A. fib, hypertension, lipidemia -Continue with home meds DVT prophylaxis -Eliquis The patient is admitted with an anticipated less than 2 midnight stay for evaluation of chest pain CODE STATUS: Full Code Discussed with: Patient Anticipated discharge date: in am Anticipated discharge place: Home Past Medical History Past Medical History: Chest Pain / Angina, Hypertension Additional Past Medical History / Comment(s): states prior chest stenting History of Any Multi-Drug Resistant Organisms: None Reported Past Surgical History: Cholecystectomy, Orthopedic Surgery Additional Past Surgical History / Comment(s): rotator cuff left shoulder, Past Anesthesia/Blood Transfusion Reactions: No Reported Reaction Past Psychological History: Anxiety Smoking Status: Never smoker Past Alcohol Use History: Daily Past Drug Use History: None Reported - Past Family History Mother Family Medical History: Cancer Brother(s) Family Medical History: Cancer Medications and Allergies Home Medications Medication Instructions Recorded Confirmed Type amLODIPine BESYLATE [Norvasc] 5 mg PO DAILY 08/14/16 03/26/22 History hydroCHLOROthiazide 25 mg PO DAILY 08/14/16 03/26/22 History lisinopriL [Zestril] 20 mg PO DAILY 08/14/16 03/26/22 History Apixaban [Eliquis] 5 mg PO BID 03/26/22 03/26/22 History Aspirin EC [Ecotrin Low Dose] 81 mg PO BID 03/26/22 03/26/22 History Atorvastatin Calcium [Lipitor] 40 mg PO DAILY 03/26/22 03/26/22 History Metoprolol Tartrate [Lopressor] 25 mg PO BID 03/26/22 03/26/22 History Potassium Chloride [Klor-Con M10] 10 meq PO DAILY 03/26/22 03/26/22 History Allergies Allergy/AdvReac Type Severity Reaction Status Date / Time tramadol Allergy heart Verified 03/26/22 18:31 failure cyclobenzaprine AdvReac Nausea & Verified 03/26/22 18:31 [From Flexeril] Vomiting naproxen [From Naprosyn] AdvReac Nausea & Verified 03/26/22 18:31 Vomiting Physical Exam Vitals: Vital Signs Temp Pulse Resp BP BP Pulse Ox 03/26/22 20:55 98.6 F 157/86 98 03/26/22 18:49 73 16 121/75 100 03/26/22 17:26 69 16 118/81 98 03/26/22 17:14 99.6 F 03/26/22 16:42 99.0 F 86 16 109/67 97 Intake and Output 03/26/22 03/26/22 03/26/22 06:59 14:59 22:59 Other: # Voids 1 Weight 91.172 kg Results CBC & Chem 7: 03/27/22 01:38 03/27/22 01:47 Labs: Abnormal Lab Results - Last 24 Hours (Table) 03/26/22 03/26/22 03/26/22 Range/Units 17:20 17:20 17:20 RBC 3.92 L (4.30-5.90) m/uL Hgb 12.4 L (13.0-17.5) gm/dL Hct 37.4 L (39.0-53.0) % Lymphocytes # 0.4 L (1.0-4.8) k/uL APTT 32.2 H (22.0-30.0) sec Sodium (137-145) mmol/L Chloride (98-107) mmol/L BUN (9-20) mg/dL Creatinine (0.66-1.25) mg/dL Urine Protein Trace H (Negative) Urine Blood Large H (Negative) Urine RBC 36 H (0-5) /hpf Urine Bacteria Rare H (None) /hpf Urine Mucus Moderate H (None) /hpf Coronavirus (PCR) (Not Detectd) 03/26/22 03/26/22 Range/Units 17:20 17:20 RBC (4.30-5.90) m/uL Hgb (13.0-17.5) gm/dL Hct (39.0-53.0) % Lymphocytes # (1.0-4.8) k/uL APTT (22.0-30.0) sec Sodium 131 L (137-145) mmol/L Chloride 95 L (98-107) mmol/L BUN 22 H (9-20) mg/dL Creatinine 1.26 H (0.66-1.25) mg/dL Urine Protein (Negative) Urine Blood (Negative) Urine RBC (0-5) /hpf Urine Bacteria (None) /hpf Urine Mucus (None) /hpf Coronavirus (PCR) Detected A (Not Detectd) Thrombosis Risk Factor Assmnt - Choose All That Apply Each Factor Represents 1 point: Obesity (BMI >25) Thrombosis Risk Factor Assessment Total Risk Factor Score: 1 Thrombosis Risk Factor Assessment Level: Low Risk
[2022-03-27] MEDS: SODIUM CHLORIDE 0.9% 1,000 ML IV SCH ×2 (01:02→15:52)
[2022-03-27 02:07] LABS: Basophils # (A) 0.1 k/uL (0-0.2); Basophils % (A) 2 %; Eosinophils % (A) 0 %; HCT 34.5 % (39.0-53.0); HGB 11.5 gm/dL (13.0-17.5); Lymphocytes # (A) 0.5 k/uL (1.0-4.8); Lymphocytes % (A) 12 %; MCHC 33.5 g/dL (31.0-37.0); MCV 95.7 fL (80.0-100.0); Mean Platelet Volume 7.2; Monocytes # (A) 0.5 k/uL (0-1.0); Monocytes % (A) 11 %; Neutrophils # (A) 3.1 k/uL (1.3-7.7); Neutrophils % (A) 70 %; Platelet Count 179 k/uL (150-450); RBC 3.61 m/uL (4.30-5.90); RDW 12.9 % (11.5-15.5); WBC 4.4 k/uL (3.8-10.6)
[2022-03-27 02:21] LABS: ALT 12 U/L (4-49); AST 27 U/L (17-59); African American GFR (CKD) 70 (>60 ml/min/1.73 sqM); Albumin 3.4 g/dL (3.5-5.0); Albumin/Globulin Ratio 1.3; Alkaline Phosphatase 98 U/L (38-126); Anion Gap 11 mmol/L; Blood Urea Nitrogen 22 mg/dL (9-20); Calcium 8.3 mg/dL (8.4-10.2); Carbon Dioxide 24 mmol/L (22-30); Chloride 96 mmol/L (98-107); Globulin 2.6 g/dL; Glucose 87 mg/dL (74-99); Non-African American GFR(CKD) 61 (>60 ml/min/1.73 sqM); Potassium 4.3 mmol/L (3.5-5.1); Sodium 131 mmol/L (137-145); Total Bilirubin 0.8 mg/dL (0.2-1.3)
[2022-03-27 08:19] VITALS: BP 116/74; PULSE 69; RESP 18; TEMP 99.4
[2022-03-27] MEDS ORDERED: ATORVASTATIN 40 MG TAB PO SCH (09:00)
[2022-03-27] MEDS ORDERED: lisinopriL 20 MG TAB PO SCH (09:00)
[2022-03-27] MEDS ORDERED: hydroCHLOROthiazide 25 MG TAB PO SCH (09:00)
[2022-03-27] MEDS ORDERED: POTASSIUM CHLORIDE ER 10 MEQ TAB.ER.PRT PO SCH (09:00)
[2022-03-27] MEDS ORDERED: amLODIPine 5 MG TAB PO SCH (09:00)
[2022-03-27] MEDS ORDERED: ZINC SULFATE 220 MG CAP PO SCH (09:00)
[2022-03-27] MEDS ORDERED: CHOLECALCIFEROL 25 MCG (1000 IU) TABLET PO SCH (09:00)
[2022-03-27] MEDS ORDERED: ASCORBIC ACID 500 MG TAB PO SCH (09:00)
[2022-03-27] MEDS: METOPROLOL TARTRATE 25 MG TAB PO SCH (09:41)
[2022-03-27] MEDS: ASPIRIN 81 MG PO SCH (09:42)
[2022-03-27] MEDS: APIXABAN 5 MG TAB PO SCH (09:42)
--- NOTE | 2022-03-27 09:53 | P.CRDCN ---
History of Present Illness Consult date: 03/27/22 History of present illness: CHIEF COMPLAINT: Chest pain HISTORY OF PRESENT ILLNESS: This is a 71-year-old male with a past medical history significant for atrial fibrillation, coronary artery disease with previous stenting, hypertension, hyperlipidemia, and anxiety. Patient follows in the office with Dr. Bhandari. We have been asked to see the patient in consultation for chest pain. Patient examined at the bedside. Patient states over the past few days he has been feeling unwell. He states he has been feeling short of breath. He reports having a productive cough. He also reports having a fever. He reports chest pa in that is nonradiating. He states the pain was worse with deep inspiration and chest wall palpation. He went to [facility] where he was transferred to [facility] for further evaluation. The patient was found to be positive for Covid. The patient denies any chest pain or pressure at the time of my examination. * EKG reveals atrial fibrillation with controlled ventricular rate. ST depression noted in anterolateral leads * Laboratory data: WBC 4.4. Hemoglobin 11.5. Platelet count 179. Sodium 131. Potassium 4.3. BUN 22. Creatinine 1.18. Troponin negative 3. * Current home cardiac medications include lisinopril 20 mg daily, hydrochlorothiazide 25 mg daily, Norvasc 5 mg daily, metoprolol tartrate 25 mg twice a day, Lipitor 40 mg daily, aspirin 81 mg twice a day, and Eliquis 5 mg twice a day * Most recent echocardiogram obtained in February 2022 revealed ejection fraction 45-50% with global LV wall hypokinesis, moderate to severe aortic regurgitation, [id number] mitral regurgitation, moderate tricuspid regurgitation * Patient underwent Samra scan showed cyst in November 2021 which was negative for ischemia * Cardiac catheterization history: July 2016 with stenting to the LAD REVIEW OF SYSTEMS: Thorough review of systems not completed secondary to limited evaluation/examination due to Covid19 PHYSICAL EXAM: Thorough physical exam not completed secondary to limited evaluation/examination due to Covid19 ASSESSMENT: Acute Covid 19 Chest pain, pleuritic, troponin negative 3 Persistent atrial fibrillation Coronary artery disease with previous stenting to the LAD Hypertension Hyperlipidemia Anxiety PLAN: An acute coronary event has been ruled out Obtain limited 2D echo to assess LV function Resume home cardiac medications Patient to follow up with Dr. Bhandari post discharge for outpatient stress testing Further recommendations pending patient course Nurse practitioner note has been reviewed by physician. Signing provider agrees with the documented findings, assessment, and plan of care. Past Medical History Past Medical History: Chest Pain / Angina, Hypertension Additional Past Medical History / Comment(s): states prior chest stenting History of Any Multi-Drug Resistant Organisms: None Reported Past Surgical History: Cholecystectomy, Orthopedic Surgery Additional Past Surgical History / Comment(s): rotator cuff left shoulder, Past Anesthesia/Blood Transfusion Reactions: No Reported Reaction Past Psychological History: Anxiety Smoking Status: Never smoker Past Alcohol Use History: Daily Past Drug Use History: None Reported - Past Family History Mother Family Medical History: Cancer Brother(s) Family Medical History: Cancer Medications and Allergies Home Medications Medication Instructions Recorded Confirmed Type amLODIPine BESYLATE [Norvasc] 5 mg PO DAILY 08/14/16 03/26/22 History hydroCHLOROthiazide 25 mg PO DAILY 08/14/16 03/26/22 History lisinopriL [Zestril] 20 mg PO DAILY 08/14/16 03/26/22 History Apixaban [Eliquis] 5 mg PO BID 03/26/22 03/26/22 History Aspirin EC [Ecotrin Low Dose] 81 mg PO BID 03/26/22 03/26/22 History Atorvastatin Calcium [Lipitor] 40 mg PO DAILY 03/26/22 03/26/22 History Metoprolol Tartrate [Lopressor] 25 mg PO BID 03/26/22 03/26/22 History Potassium Chloride [Klor-Con M10] 10 meq PO DAILY 03/26/22 03/26/22 History Allergies Allergy/AdvReac Type Severity Reaction Status Date / Time tramadol Allergy heart Verified 03/26/22 18:31 failure cyclobenzaprine AdvReac Nausea & Verified 03/26/22 18:31 [From Flexeril] Vomiting naproxen [From Naprosyn] AdvReac Nausea & Verified 03/26/22 18:31 Vomiting Physical Exam Vitals: Vital Signs Temp Pulse Pulse Resp BP BP Pulse Ox 03/27/22 07:00 99.4 F 69 18 116/74 95 03/27/22 01:03 99.1 F 80 130/72 98 03/26/22 20:55 98.6 F 157/86 98 03/26/22 18:49 73 16 121/75 100 03/26/22 17:26 69 16 118/81 98 03/26/22 17:14 99.6 F 03/26/22 16:42 99.0 F 86 16 109/67 97 Intake and Output 03/26/22 03/27/22 03/27/22 22:59 06:59 14:59 Other: # Voids 1 1 Weight 91.172 kg Results 03/27/22 01:38 03/27/22 01:47 Cardiac Enzymes 03/26/22 03/26/22 03/26/22 Range/Units 17:20 17:20 21:21 AST 27 (17-59) U/L Troponin I <0.012 <0.012 (0.000-0.034) ng/mL 03/27/22 03/27/22 Range/Units 01:38 01:47 AST 27 (17-59) U/L Troponin I <0.012 (0.000-0.034) ng/mL Coagulation 03/26/22 Range/Units 17:20 PT 11.8 (9.0-12.0) sec APTT 32.2 H (22.0-30.0) sec CBC 03/26/22 03/27/22 Range/Units 17:20 01:38 WBC 6.2 4.4 (3.8-10.6) k/uL RBC 3.92 L 3.61 L (4.30-5.90) m/uL Hgb 12.4 L 11.5 L (13.0-17.5) gm/dL Hct 37.4 L 34.5 L (39.0-53.0) % Plt Count 195 179 (150-450) k/uL Comprehensive Metabolic Panel 03/26/22 03/27/22 Range/Units 17:20 01:47 Sodium 131 L 131 L (137-145) mmol/L Potassium 4.0 4.3 (3.5-5.1) mmol/L Chloride 95 L 96 L (98-107) mmol/L Carbon Dioxide 23 24 (22-30) mmol/L BUN 22 H 22 H (9-20) mg/dL Creatinine 1.26 H 1.18 (0.66-1.25) mg/dL Glucose 89 87 (74-99) mg/dL Calcium 8.6 8.3 L (8.4-10.2) mg/dL AST 27 27 (17-59) U/L ALT 14 12 (4-49) U/L Alkaline Phosphatase 125 98 (38-126) U/L Total Protein 6.8 6.0 L (6.3-8.2) g/dL Albumin 4.0 3.4 L (3.5-5.0) g/dL Current Medications Generic Name Dose Route Start Last Admin Trade Name Freq PRN Reason Stop Dose Admin Amlodipine Besylate 5 mg 03/27/22 09:00 Amlodipine 5 Mg Tab PO DAILY [facility] Apixaban 5 mg 03/26/22 21:00 03/26/22 20:53 Apixaban 5 Mg Tab PO 5 mg BID [facility] Administration Protocol Ascorbic Acid 1,000 mg 03/27/22 09:00 Ascorbic Acid 500 Mg Tab PO DAILY [facility] Aspirin 81 mg 03/26/22 21:00 03/26/22 20:53 Aspirin 81 Mg PO 81 mg BID KD Administration Atorvastatin Calcium 40 mg 03/27/22 09:00 Atorvastatin 40 Mg Tab PO DAILY [facility] Cholecalciferol 125 mcg 03/27/22 09:00 Cholecalciferol 25 Mcg (1000 Iu) Tablet PO DAILY [facility] Sodium Chloride 1,000 mls @ 75 mls/hr 03/26/22 23:45 03/27/22 01:02 Saline 0.9% IV 75 mls/hr .[id number] KD Administration Lisinopril 20 mg 03/27/22 09:00 Lisinopril 20 Mg Tab PO DAILY [facility] Metoprolol Tartrate 25 mg 03/26/22 21:00 03/26/22 20:53 Metoprolol Tartrate 25 Mg Tab PO 25 mg BID KD Administration Naloxone HCl 0.2 mg 03/26/22 19:18 Naloxone 0.4 Mg/Ml 1 Ml Vial IV Q2M PRN Opioid Reversal Ondansetron HCl 4 mg 03/26/22 19:18 Ondansetron 4 Mg/2 Ml Vial IVP Q8HR PRN Nausea And Vomiting Potassium Chloride 10 meq 03/27/22 09:00 Potassium Chloride Er 10 Meq Tab.Er.Prt PO DAILY [facility] Zinc Sulfate 220 mg 03/27/22 09:00 Zinc Sulfate 220 Mg Cap PO DAILY [facility] Intake and Output 03/26/22 03/27/22 03/27/22 22:59 06:59 14:59 Other: # Voids 1 1 Weight 91.172 kg 03/27/22 01:38 03/27/22 01:47
--- NOTE | 2022-03-27 13:28 | CA ---
Transthoracic Echo Report Name: Donta Chakraborty Age: 71 Gender: M : 1950 Exam Date: 03/27/2022 09:26 Exam Location: [facility] Ht (in): 71 Wt (lb): 201 Ordering Physician: Geovanna Keenan Attending/Referring Phys: [id number], Shlomo Algologist Kelsi Bower RDCS Procedure CPT: Indications: CP, LV function, + covid Cardiac Hx: Technical Quality: Fair Contrast 1: Total Dose (mL): Contrast 2: Total Dose (mL): MEASUREMENTS (Male / Female) Normal Values 2D ECHO LV Diastolic Diameter PLAX 4.8 cm 4.2 - 5.9 / 3.9 - 5.3 cm LV Systolic Diameter PLAX 3.6 cm IVS Diastolic Thickness 1.4 cm 0.6 - 1.0 / 0.6 - 0.9 cm LVPW Diastolic Thickness 1.4 cm 0.6 - 1.0 / 0.6 - 0.9 cm LV Relative Wall Thickness 0.6 FINDINGS Left Ventricle Limited study, mild to moderately increased left ventricular wall thickness. Normal left ventricular systolic function with no obvious regional wall motion abnormalities. Left ventricular ejection fraction is estimated at 55-60 %. Right Ventricle Right Atrium Left Atrium Mitral Valve Aortic Valve Tricuspid Valve Pulmonic Valve Pericardium Prominent epicardial fat. Aorta CONCLUSIONS Limited 2-D echo Mild LVH Normal left ventricular ejection fraction 55-60% Previewed by: Dr. Benitez Moran DO (Electronically Signed) Final Date: 27 March 2022 13:27
--- NOTE | 2022-03-27 14:30 | P.DS ---
Providers Date of admission: 03/26/22 19:18 Attending physician: Jamari Lion MD Consults: 03/26/22 19:18 Consult Physician Routine Consulting Provider: [facility] Consult Reason/Comments: chest pain Do you want consulting provider notified?: Yes, Notify in am Primary care physician: Cj Robbins [facility] Course: The patient is a 70-year-old male with a PMH of hypertension, A. fib on Eliquis, coronary artery disease status post stenting, and hyperlipidemia who was transferred from [facility] where he had presented for multiple complaints. The patient reports that he has been experiencing a constant epigastric aching-like discomfort for the past several days along with a cough productive of yellow/green phlegm. The pain also has a pleuritic component and is worsened with coughing. 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 The patient received nitroglycerin and aspirin at the outside facility which patient states resolved his chest pain. The patient underwent an extensive evaluation at [facility] which was remarkable for EKG showing ST segment depressions in precordial leads. The patient routinely follows with Dr. Bhandari and decided to drive down to [place] for cardiology evaluation once he was informed that he needs further workup. Patient was noted to observation floor for cardiac workup. He was seen by cardiology team. Echocardiogram was repeated which did not reveal any evidence of new ischemia. Patient was cleared by cardiology from cardiac standpoint. Patient's electrolytes did improve with IV fluid hydration and sodium improved. Patient's renal function also improved. On discharge patient was not having any further complaints of chest pain or shortness of breath he was resting comfortably and was agreement for discharge home. He is to discontinue his hydrochlorothiazide medication on discharge. And follow-up with his primary care physician within one week for repeat BMP. Plan - Discharge Summary New Discharge Prescriptions: Continue amLODIPine BESYLATE [Norvasc] 5 mg PO DAILY lisinopriL [Zestril] 20 mg PO DAILY Potassium Chloride [Klor-Con M10] 10 meq PO DAILY Apixaban [Eliquis] 5 mg PO BID Metoprolol Tartrate [Lopressor] 25 mg PO BID Atorvastatin Calcium [Lipitor] 40 mg PO DAILY Aspirin EC [Ecotrin Low Dose] 81 mg PO BID Discontinued hydroCHLOROthiazide 25 mg PO DAILY Discharge Medication List amLODIPine BESYLATE [Norvasc] 5 mg PO DAILY 08/14/16 [History] lisinopriL [Zestril] 20 mg PO DAILY 08/14/16 [History] Apixaban [Eliquis] 5 mg PO BID 03/26/22 [History] Aspirin EC [Ecotrin Low Dose] 81 mg PO BID 03/26/22 [History] Atorvastatin Calcium [Lipitor] 40 mg PO DAILY 03/26/22 [History] Metoprolol Tartrate [Lopressor] 25 mg PO BID 03/26/22 [History] Potassium Chloride [Klor-Con M10] 10 meq PO DAILY 03/26/22 [History] Follow up Appointment(s)/Referral(s): Cj Hung DO [Primary Care Provider] - 1-2 days
== END 2022-03-27 16:05 | disposition home or self-care (01) ==
LOC: EC 16:33 → 6NMEDSUR 19:18
PROVIDERS: ADMIT Internal Medicine; ATTEND Internal Medicine
DX: R07.89 Other chest pain (principal); R10.13 Epigastric pain; I10 Essential (primary) hypertension; I48.19 Other persistent atrial fibrillation; I25.10 Atherosclerotic heart disease of native coronary artery without angina pectoris; E78.5 Hyperlipidemia, unspecified; N17.9 Acute kidney failure, unspecified; E87.1 Hypo-osmolality and hyponatremia; U07.1 COVID-19; F41.9 Anxiety disorder, unspecified; Z79.01 Long term (current) use of anticoagulants; Z79.82 Long term (current) use of aspirin; Z79.899 Other long term (current) drug therapy; Z88.5 Allergy status to narcotic agent; Z90.49 Acquired absence of other specified parts of digestive tract; Z95.5 Presence of coronary angioplasty implant and graft
CPT/HCPCS: 96374; 99285; 36415; 93005; 93308; 83880; 80053 ×2; 82150; 83690; 83735; 84484 ×2; 85025 ×2; 85610; 85730; 81001; 87502; 87635; G0378 ×2; J2405

== ENCOUNTER → 2022-04-07 | Outpatient (CLI) | payer MEDICARE ==
[2022-04-07 23:15] LABS: African American GFR (CKD) 66.4 (60.0-200.0); Anion Gap 13.5 mmol/L (10.00-18.00); BUN/Creat Ratio 10.81 Ratio (12.00-20.00); Blood Urea Nitrogen 13.4 mg/dL (9.0-27.0); Calcium 8.6 mg/dL (8.7-10.3); Carbon Dioxide 22.6 mmol/L (20.0-27.5); Non-African American GFR(CKD) 57.3 (60.0-200.0); Potassium 3.7 mmol/L (3.5-5.5)
== END | disposition home or self-care (01) ==
LOC: LABWHC1 15:00
PROVIDERS: ATTEND Family Medicine
DX: I25.10 Atherosclerotic heart disease of native coronary artery without angina pectoris (principal)
CPT/HCPCS: 36415; 80048

== ENCOUNTER → 2023-09-20 | Outpatient (CLI) | payer MEDICARE ==
[2023-09-20 15:56] LABS: ALT 22 U/L (10-49); AST 17 U/L (14-35); Chol/HDL Ratio 1.66 Ratio; LDL Cholesterol,Calculated 34.6 mg/dL (0.0-131.0); VLDL Calculation 19.74 mg/dL (5.00-40.00)
== END | disposition home or self-care (01) ==
LOC: LABWHC1 09:20
PROVIDERS: ATTEND Internal Medicine Cardiovascular Disease
DX: E78.2 Mixed hyperlipidemia (principal)
CPT/HCPCS: 36415; 80061; 84450; 84460

== ENCOUNTER 2023-11-07 11:46 | Inpatient (IN) | payer MEDICARE ==
--- NOTE | 2023-11-07 12:09 | ED ---
SOB HPI - General Chief Complaint: Shortness of Breath Stated Complaint: SOB sent by urgent care Time Seen by Provider: 11/07/23 11:57 Source: patient, RN notes reviewed Mode of arrival: ambulatory Limitations: no limitations - History of Present Illness Initial Comments: This is a 73-year-old male who presents to the emergency department for chest pain and shortness of breath. States that he also feels very weak. Symptoms initially started 1 to 2 weeks ago, but have gotten much worse over the last 2 to 3 days. Chest pain is worse with exertion. He was barely able to take the trash out yesterday due to the chest pain and shortness of breath, and states that he had to sit down in the process. Chest pain is described as tightness. Patient initially went to urgent care and had an EKG done demonstrating atrial fibrillation. Patient has no history of atrial fibrillation. He is on Eliquis, states that he had a stent placed 8 years ago. Currently follows with Dr. Bhandari, cardiology. MD Complaint: shortness of breath - Related Data Home Medications Medication Instructions Recorded Confirmed amLODIPine BESYLATE [Norvasc] 5 mg PO DAILY 08/14/16 11/07/23 lisinopriL [Zestril] 20 mg PO DAILY 08/14/16 11/07/23 Apixaban [Eliquis] 5 mg PO BID 03/26/22 11/07/23 Aspirin EC [Ecotrin Low Dose] 81 mg PO BID 03/26/22 11/07/23 Atorvastatin Calcium [Lipitor] 40 mg PO DAILY 03/26/22 11/07/23 Metoprolol Tartrate [Lopressor] 25 mg PO BID 03/26/22 11/07/23 Potassium Chloride [Klor-Con M10] 10 meq PO DAILY 03/26/22 11/07/23 Cyanocobalamin (Vitamin B-12) 1,000 mcg PO DAILY 11/07/23 11/07/23 [Vitamin B-12] Allergies Allergy/AdvReac Type Severity Reaction Status Date / Time tramadol Allergy heart Verified 11/07/23 12:38 failure cyclobenzaprine AdvReac Nausea & Verified 11/07/23 12:38 [From Flexeril] Vomiting naproxen [From Naprosyn] AdvReac Nausea & Verified 11/07/23 12:38 Vomiting Review of Systems ROS Statement: Those systems with pertinent positive or pertinent negative responses have been documented in the HPI. ROS Other: All systems not noted in ROS Statement are negative. Past Medical History Past Medical History: Chest Pain / Angina, Hypertension Additional Past Medical History / Comment(s): states prior chest stenting History of Any Multi-Drug Resistant Organisms: None Reported Past Surgical History: Cholecystectomy, Orthopedic Surgery Additional Past Surgical History / Comment(s): rotator cuff left shoulder, Past Anesthesia/Blood Transfusion Reactions: No Reported Reaction Past Psychological History: Anxiety Smoking Status: Never smoker Past Alcohol Use History: Daily Past Drug Use History: None Reported - Past Family History Mother Family Medical History: Cancer Brother(s) Family Medical History: Cancer General Exam Limitations: no limitations General appearance: alert, in no apparent distress Head exam: Present: atraumatic, normocephalic, normal inspection Respiratory exam: Present: normal lung sounds bilaterally. Absent: respiratory distress, wheezes, rales, rhonchi, stridor Cardiovascular Exam: Present: irregular rhythm GI/Abdominal exam: Present: soft, normal bowel sounds. Absent: distended, tenderness, guarding, rebound, rigid Neurological exam: Present: alert, oriented X3, CN II-XII intact Psychiatric exam: Present: normal affect, normal mood Skin exam: Present: warm, dry, intact, normal color. Absent: rash Course Vital Signs 11/07/23 11/07/23 11/07/23 11:48 12:04 12:30 Temperature 98.6 F Pulse Rate 116 H 137 H 84 Respiratory 18 16 19 Rate Blood Pressure 158/94 152/95 O2 Sat by Pulse 98 98 Oximetry 11/07/23 11/07/23 13:00 14:00 Temperature Pulse Rate 91 92 Respiratory 18 18 Rate Blood Pressure 153/97 172/99 O2 Sat by Pulse 99 96 Oximetry Medical Decision Making - Medical Decision Making This is a 73 year old male who presents to the emergency department for shortness of breath. Was pt. sent in by a medical professional or institution? @ -No Did you speak to anyone other than the patient for history? @ -No Did you review nursing and triage notes? @ -Yes, and I agree, it is accurate with regards to the patient's symptoms. Were old charts reviewed? @ -No Differential Diagnosis? @ -Differential Dyspnea: Coronary syndrome, arrhythmia, tamponade, asthma, COPD, pulmonary embolism, pneumonia, pneumothorax, pulmonary effusion, anaphylaxis, diabetic ketoacidosis, flailed chest, pulmonary contusion, diaphragmatic rupture, anemia, neuromuscular, this is not meant to be an all-inclusive list. EKG interpreted by me (3pts min.)? @ -EKG interpreted by me demonstrating the following: Atrial fibrillation. Ventricular rate 88 bpm, QRS duration 94 ms, QTc is 421 ms. X-rays interpreted by me (1pt min.)? @ -Chest x-ray obtained, my interpretation identifies no localized consolidations or infiltrates. CT interpreted by me (1pt min.)? @ -Not obtained U/S interpreted by me (1pt. min.)? @ -Not obtained What testing was considered but not performed? (CT, X-rays, U/S, labs)? Why? @ -None What meds were considered but not given? Why? @ -None Did you discuss the management of the patient with other professionals? @ -Yes, Dr. River, who accepts the patient for admission. Did you reconcile home meds? @ -Yes Was smoking cessation discussed for >3mins.? @ -No Was critical care preformed (if so, how long)? @ -No Were there social determinants of health that impacted care today? How? (Homelessness, low income, unemployed, alcoholism, drug addiction, transportation, low edu. Level, literacy, decrease access to med. care, [place] [facility], rehab)? @ -No Was there de-escalation of care discussed even if they declined? (Discuss DNR or withdrawal of care, Hospice)? @ -No What co-morbidities impacted this encounter? (DM, HTN, Smoking, COPD, CAD, Cancer, CVA, Hep., AIDS, mental health diagnosis, sleep apnea, morbid obesity)? @ -CAD, HTN Was patient admitted / discharged? @ -Admitted. Lab work unremarkable, including a negative troponin and negative D-dimer.. Chest x-ray reveals no acute process. Patient noted to be in A-fib on arrival. Patient denies a history of atrial fibrillation. Patient was initially in A-fib with RVR, but did become rate controlled on his own. Because he was rate controlled on his own, Cardizem was not initiated. He was started on the low intensity heparin protocol. Patient admitted to medicine for new onset A-fib as well as chest pain rule out due to history of CAD and worsening chest pain with exertion over the last several days. Consult placed for cardiology and serial troponins were ordered. Undiagnosed new problem with uncertain prognosis? @ -None Drug Therapy requiring intensive monitoring for toxicity (Heparin, Nitro, Insulin, Cardizem)? @ -Heparin Were any procedures done? @ -None Diagnosis/symptom? @ -New onset a-fib, Chest pain, KELIN Acute, or Chronic, or Acute on Chronic? @ -Acute Uncomplicated (without systemic symptoms) or Complicated (systemic symptoms)? @ -Complicated Side effects of treatment? @ -None Exacerbation, Progression, or Severe Exacerbation] @ -Not applicable Poses a threat to life or bodily function? @ -Yes This case was discussed in detail with the attending ED physician, Dr. Maloney. Presentation, findings, and treatment plan discussed in detail as well. - Lab Data Result diagrams: 11/07/23 12:15 11/07/23 12:15 Lab Results 11/07/23 11/07/23 11/07/23 Range/Units 12:15 12:15 12:15 WBC 10.1 (3.8-10.6) k/uL RBC 3.82 L (4.30-5.90) m/uL Hgb 12.8 L (13.0-17.5) gm/dL Hct 38.0 L (39.0-53.0) % MCV 99.4 (80.0-100.0) fL MCH 33.6 (25.0-35.0) pg MCHC 33.8 (31.0-37.0) g/dL RDW 14.1 (11.5-15.5) % Plt Count 173 (150-450) k/uL MPV 8.1 Neutrophils % 88 % Lymphocytes % 4 % Monocytes % 6 % Eosinophils % 0 % Basophils % 0 % Neutrophils # 8.9 H (1.3-7.7) k/uL Lymphocytes # 0.4 L (1.0-4.8) k/uL Monocytes # 0.6 (0-1.0) k/uL Eosinophils # 0.0 (0-0.7) k/uL Basophils # 0.0 (0-0.2) k/uL PT 12.4 (10.0-12.5) sec INR 1.2 H (<1.2) APTT 30.2 H (22.0-30.0) sec D-Dimer 0.30 (<0.60) mg/L FEU Sodium 131 L (137-145) mmol/L Potassium 4.2 (3.5-5.1) mmol/L Chloride 102 (98-107) mmol/L Carbon Dioxide 22 (22-30) mmol/L Anion Gap 7 mmol/L BUN 16 (9-20) mg/dL Creatinine 1.05 (0.66-1.25) mg/dL Est GFR (CKD-EPI)AfAm 80 (>60 ml/min/1.73 sqM) Est GFR (CKD-EPI)NonAf 70 (>60 ml/min/1.73 sqM) Glucose 115 H (74-99) mg/dL Plasma Lactic Acid Laron (0.7-2.0) mmol/L Calcium 8.3 L (8.4-10.2) mg/dL Magnesium 1.7 (1.6-2.3) mg/dL Total Bilirubin 1.5 H (0.2-1.3) mg/dL AST 26 (17-59) U/L ALT 17 (4-49) U/L Alkaline Phosphatase 93 (38-126) U/L Troponin I (0.000-0.034) ng/mL Total Protein 6.4 (6.3-8.2) g/dL Albumin 3.5 (3.5-5.0) g/dL 11/07/23 11/07/23 Range/Units 12:15 12:15 WBC (3.8-10.6) k/uL RBC (4.30-5.90) m/uL Hgb (13.0-17.5) gm/dL Hct (39.0-53.0) % MCV (80.0-100.0) fL MCH (25.0-35.0) pg MCHC (31.0-37.0) g/dL RDW (11.5-15.5) % Plt Count (150-450) k/uL MPV Neutrophils % % Lymphocytes % % Monocytes % % Eosinophils % % Basophils % % Neutrophils # (1.3-7.7) k/uL Lymphocytes # (1.0-4.8) k/uL Monocytes # (0-1.0) k/uL Eosinophils # (0-0.7) k/uL Basophils # (0-0.2) k/uL PT (10.0-12.5) sec INR (<1.2) APTT (22.0-30.0) sec D-Dimer (<0.60) mg/L FEU Sodium (137-145) mmol/L Potassium (3.5-5.1) mmol/L Chloride (98-107) mmol/L Carbon Dioxide (22-30) mmol/L Anion Gap mmol/L BUN (9-20) mg/dL Creatinine (0.66-1.25) mg/dL Est GFR (CKD-EPI)AfAm (>60 ml/min/1.73 sqM) Est GFR (CKD-EPI)NonAf (>60 ml/min/1.73 sqM) Glucose (74-99) mg/dL Plasma Lactic Acid Laron 1.1 (0.7-2.0) mmol/L Calcium (8.4-10.2) mg/dL Magnesium (1.6-2.3) mg/dL Total Bilirubin (0.2-1.3) mg/dL AST (17-59) U/L ALT (4-49) U/L Alkaline Phosphatase (38-126) U/L Troponin I 0.016 (0.000-0.034) ng/mL Total Protein (6.3-8.2) g/dL Albumin (3.5-5.0) g/dL - Radiology Data Radiology results: report reviewed, image reviewed Disposition Clinical Impression: Shortness of breath, New onset a-fib, Chest pain Disposition: ADMITTED IP TO THIS [facility] Time of Disposition: 13:34
[2023-11-07] MEDS: SODIUM CHLORIDE 0.9% 1,000 ML IV STA (12:33)
[2023-11-07 12:40] LABS: Basophils % (A) 0 %; Eosinophils % (A) 0 %; HGB 12.8 gm/dL (13.0-17.5); Lymphocytes # (A) 0.4 k/uL (1.0-4.8); Lymphocytes % (A) 4 %; MCH 33.6 pg (25.0-35.0); MCHC 33.8 g/dL (31.0-37.0); MCV 99.4 fL (80.0-100.0); Mean Platelet Volume 8.1; Monocytes # (A) 0.6 k/uL (0-1.0); Monocytes % (A) 6 %; Neutrophils # (A) 8.9 k/uL (1.3-7.7); Neutrophils % (A) 88 %; Platelet Count 173 k/uL (150-450); RBC 3.82 m/uL (4.30-5.90); RDW 14.1 % (11.5-15.5); WBC 10.1 k/uL (3.8-10.6)
[2023-11-07 12:49] LABS: ALT 17 U/L (4-49); African American GFR (CKD) 80 (>60 ml/min/1.73 sqM); Albumin 3.5 g/dL (3.5-5.0); Anion Gap 7 mmol/L; Blood Urea Nitrogen 16 mg/dL (9-20); Calcium 8.3 mg/dL (8.4-10.2); Carbon Dioxide 22 mmol/L (22-30); Chloride 102 mmol/L (98-107); Glucose 115 mg/dL (74-99); Non-African American GFR(CKD) 70 (>60 ml/min/1.73 sqM); Sodium 131 mmol/L (137-145); Total Bilirubin 1.5 mg/dL (0.2-1.3); Total Protein 6.4 g/dL (6.3-8.2)
[2023-11-07 12:51] LABS: AST 26 U/L (17-59); Magnesium 1.7 mg/dL (1.6-2.3); Potassium 4.2 mmol/L (3.5-5.1)
[2023-11-07 12:52] LABS: Alkaline Phosphatase 93 U/L (38-126)
[2023-11-07 12:55] LABS: INR 1.2 (<1.2); Partial Thromboplastin Time 30.2 sec (22.0-30.0); Prothrombin Time 12.4 sec (10.0-12.5)
[2023-11-07] MEDS ORDERED: HEPARIN SODIUM 1,000 UN/ML (10ML VL) IV PRN (13:07)
--- NOTE | 2023-11-07 13:09 | XR ---
EXAMINATION TYPE: XR chest 2V DATE OF EXAM: 11/07/2023 COMPARISON: NONE HISTORY: Shortness of breath TECHNIQUE: Frontal and lateral views of the chest are obtained. FINDINGS: Scattered senescent parenchymal changes noted. Hyperinflation compatible with COPD. No evidence for infiltrate. No evidence for atelectasis. Heart size is stable. Mediastinal structures are stable and grossly unremarkable. No evidence for hilar prominence. Degenerative changes dorsal spine. IMPRESSION: 1. No evidence for acute pulmonary disease.
[2023-11-07] MEDS: HEPARIN SOD,PORK IN 0.45% NACL 25,000 UNIT in 0.45% NACL 1 250ML.BAG IV SCH (13:20)
[2023-11-07] MEDS: HEPARIN SODIUM 1,000 UN/ML (10ML VL) IV ONE (13:21)
[2023-11-07] MEDS ORDERED: NALOXONE 0.4 MG/ML 1 ML VIAL IV PRN (13:34)
[2023-11-07] MEDS ORDERED: ONDANSETRON 4 MG/2 ML VIAL IVP PRN (13:34)
[2023-11-07 20:03] LABS: Glucose,Whole Blood 104 mg/dL (70-110)
[2023-11-07] MEDS: ACETAMINOPHEN TAB 325 MG TAB PO PRN (20:14)
[2023-11-07] MEDS: METOPROLOL TARTRATE 25 MG TAB PO SCH (20:14)
[2023-11-07] MEDS: ASPIRIN 81 MG PO SCH (20:14)
[2023-11-07] MEDS ORDERED: CALCIUM CARBONATE 500 MG CHEWABLE PO PRN (20:32)
[2023-11-07] MEDS ORDERED: LORazepam 0.5 MG TAB PO PRN (20:32)
[2023-11-07] MEDS ORDERED: MELATONIN 3 MG TABLET PO PRN (20:32)
--- NOTE | 2023-11-07 21:57 | P.HPIM ---
History of Present Illness H&P Date: 11/07/23 Chief Complaint: Chest pain This is a pleasant 73-year-old patient who used to follow with Dr. Hung. He thinks he now follows with Dr. Rowan. Chronic stable medical conditions include hypertension, hyperlipidemia, has known prior coronary with stent about 8 years ago. 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 This morning he developed pain across the chest while sitting in the morning. [place] a bit dizzy. Tired. Short of breath. No nausea no perspiration. Pain lateral focus quite some time. Patient not had any stress test recently Review of systems: GEN.: Tired EYES: None HEENT: None NECK: None RESPIRATORY: None CARDIOVASCULAR: As above e GASTROINTESTINAL: None GENITOURINARY: None MUSCULOSKELETAL: None LYMPHATICS: None HEMATOLOGICAL: None PSYCHIATRY: None NEUROLOGICAL: None Social history: . Stop smoking 5 years ago. Did drink alcohol Physical examination: VITAL SIGNS: Afebrile, 95, 20, 1 4287, 94% room air GENERAL: BMI 28.8, laying in bed comfortable. EYES: Pupils equal. Conjunctiva estrellita l. HEENT: External appearance of nose and ears normal, oral cavity grossly normal. NECK: JVD not raised; masses not palpable. HEART: First and second heart sounds are normal; no edema. LUNGS: Respiratory rate normal; clear to auscultation. ABDOMEN: Soft, nontender, liver spleen not palpable, no masses palpable. PSYCH: Alert and oriented x3; mood and affect estrellita l. MUSCULOSKELETAL:No Clubbing/cyanosis;muscles-grossly intact. OA NEUROLOGICAL: Cranial nerves grossly intact; no facial asymmetry, power and sensation grossly intact. LYMPHATICS: No lymph nodes palpable in the axilla and neck INVESTIGATIONS, reviewed in the clinical context: November 07, 2023: White count 10.1 hemoglobin 12.8 platelets 173 sodium 131 potassium 4.2 creatinine 1.05 Troponin I 0.016, 0.018, 0.023 EKG tracing personally reviewed by me-atrial flutter fibrillation, ST segment depressed in inferolateral leads. Chest x-ray film personally reviewed by me-some hyperinflation Assessment plan: -Unstable angina in a patient with known coronary artery disease stent about 8 years ago. Patient has EKG changes in inferolateral leads. Troponins are borderline. Aspirin. Lipitor. Lopressor. IV heparin. Cardiology consulted -Coronary artery disease prior history of stent 8 years ago[address] with Dr[address] Sebastian Bhandari Amlodipine. Lopressor. -Persistent atrial flutter fibrillation, rate controlled Lopressor 25 mg twice daily Eliquis held. IV heparin -IV heparin monitoring Follow PTT -Essential hypertension Zestril 20 mg a day amlodipine 5 mg a day Lopressor 25 mg twice daily -Hyperlipidemia Lipitor 40 mg a day Care was discussed with the patient. Questions answered. Cardiology consulted. Past Medical History Past Medical History: Chest Pain / Angina, Hypertension Additional Past Medical History / Comment(s): states prior chest stenting History of Any Multi-Drug Resistant Organisms: None Reported Past Surgical History: Cholecystectomy, Orthopedic Surgery Additional Past Surgical History / Comment(s): rotator cuff left shoulder, Past Anesthesia/Blood Transfusion Reactions: No Reported Reaction Past Psychological History: Anxiety Smoking Status: Never smoker Past Alcohol Use History: Daily Additional Past Alcohol Use History / Comment(s): quit smoking at least 5 yrs ago, unsure when started Past Drug Use History: None Reported - Past Family History Mother Family Medical History: Cancer Brother(s) Family Medical History: Cancer Medications and Allergies Home Medications Medication Instructions Recorded Confirmed Type amLODIPine BESYLATE [Norvasc] 5 mg PO DAILY 08/14/16 11/07/23 History lisinopriL [Zestril] 20 mg PO DAILY 08/14/16 11/07/23 History Apixaban [Eliquis] 5 mg PO BID 03/26/22 11/07/23 History Aspirin EC [Ecotrin Low Dose] 81 mg PO BID 03/26/22 11/07/23 History Atorvastatin Calcium [Lipitor] 40 mg PO DAILY 03/26/22 11/07/23 History Metoprolol Tartrate [Lopressor] 25 mg PO BID 03/26/22 11/07/23 History Potassium Chloride [Klor-Con M10] 10 meq PO DAILY 03/26/22 11/07/23 History Cyanocobalamin (Vitamin B-12) 1,000 mcg PO DAILY 11/07/23 11/07/23 History [Vitamin B-12] Allergies Allergy/AdvReac Type Severity Reaction Status Date / Time tramadol Allergy heart Verified 11/07/23 12:38 failure cyclobenzaprine AdvReac Nausea & Verified 11/07/23 12:38 [From Flexeril] Vomiting naproxen [From Naprosyn] AdvReac Nausea & Verified 11/07/23 12:38 Vomiting Physical Exam Vitals: Vital Signs Temp Pulse Pulse Resp BP BP Pulse Ox 11/07/23 19:51 100.3 F H 93 22 169/80 97 11/07/23 19:00 95 29 H 142/87 94 L 11/07/23 18:30 85 32 H 149/94 93 L 11/07/23 18:00 96 143/95 96 11/07/23 17:30 105 H 18 153/97 98 11/07/23 17:00 98 22 151/101 98 11/07/23 16:30 95 169/100 97 11/07/23 15:30 84 28 H 160/94 95 11/07/23 15:00 86 20 152/87 98 11/07/23 14:00 92 18 172/99 96 11/07/23 13:00 91 18 153/97 99 11/07/23 12:30 84 19 152/95 98 11/07/23 12:04 137 H 16 11/07/23 11:48 98.6 F 116 H 18 158/94 98 Intake and Output 11/07/23 11/07/23 11/07/23 06:59 14:59 22:59 Intake Total 84.342 Balance 84.342 Intake: Intake, IV Titration 84.342 Amount Heparin Sod,Pork in 0.45% 84.342 NaCl 25,000 unit In 0.45 % NaCl 1 250ml.bag @ 10.4 UNITS/KG/HR 10.001 mls/ hr IV .Q24H [facility] Rx#: [id number] Other: Weight 96.162 kg 96.162 kg Results CBC & Chem 7: 11/07/23 12:15 11/07/23 12:15 Labs: Abnormal Lab Results - Last 24 Hours (Table) 11/07/23 11/07/23 11/07/23 Range/Units 12:15 12:15 12:15 RBC 3.82 L (4.30-5.90) m/uL Hgb 12.8 L (13.0-17.5) gm/dL Hct 38.0 L (39.0-53.0) % Neutrophils # 8.9 H (1.3-7.7) k/uL Lymphocytes # 0.4 L (1.0-4.8) k/uL INR 1.2 H (<1.2) APTT 30.2 H (22.0-30.0) sec Sodium 131 L (137-145) mmol/L Glucose 115 H (74-99) mg/dL Calcium 8.3 L (8.4-10.2) mg/dL Total Bilirubin 1.5 H (0.2-1.3) mg/dL 11/07/23 Range/Units 19:56 RBC (4.30-5.90) m/uL Hgb (13.0-17.5) gm/dL Hct (39.0-53.0) % Neutrophils # (1.3-7.7) k/uL Lymphocytes # (1.0-4.8) k/uL INR (<1.2) APTT 54.0 H (22.0-30.0) sec Sodium (137-145) mmol/L Glucose (74-99) mg/dL Calcium (8.4-10.2) mg/dL Total Bilirubin (0.2-1.3) mg/dL Thrombosis Risk Factor Assmnt - Choose All That Apply Any of the Below Risk Factors Present?: No Other Risk Factors: Yes Each Risk Factor Represents 3 Points: Age 75 years or older Other congenital or acquired thrombophilia - If yes, enter type in comment: No Thrombosis Risk Factor Assessment Total Risk Factor Score: 3 Thrombosis Risk Factor Assessment Level: Moderate Risk
[2023-11-08 08:46] VITALS: BMI 28.4
[2023-11-08] MEDS ORDERED: HEPARIN SODIUM 1,000 UN/ML (10ML VL) IV PRN (08:46)
[2023-11-08] MEDS ORDERED: lisinopriL 20 MG TAB PO SCH (09:00)
[2023-11-08] MEDS ORDERED: amLODIPine 5 MG TAB PO SCH (09:00)
[2023-11-08] MEDS ORDERED: POTASSIUM CHLORIDE ER 10 MEQ TAB.ER.PRT PO SCH (09:00)
--- NOTE | 2023-11-08 09:10 | P.CRDCN ---
History of Present Illness Consult date: 11/08/23 Reason for Consult (text): New onset atrial fibrillation, chest pain History of present illness: History of present illness: This is a 73-year-old male patient of Dr. Sebastian Bhandari with past medical history of coronary artery disease with previous stent, permanent atrial fibrillation on Eliquis with rate controlled, hypertension, hyperlipidemia, moderate aortic insufficiency. We have been asked to evaluate the patient for new onset atrial fibrillation and chest pain. Patient states that he has had fevers headache body aches cough and went to the walk-in clinic. He thought he had COVID again. He tested negative for COVID and influenza A and influenza B. Patient also complains of chest pain on the left side as well as left arm discomfort that his woke him from sleep. He has had this on and off for a while. No injuries to his chest or left arm. He is able to lay flat in bed. He states he was not aware that he had atrial fibrillation. Patient has been started on a heparin drip. EKG atrial fibrillation rate controlled Chest x-ray: No acute process WBC 10, hemoglobin 12.8. INR 1.2. D-dimer 0.3. Sodium 131, potassium 4.2, BUN 16 creatinine 1.05. Troponins negative x 3. Calcium 8.3. Magnesium 1.7. Total bilirubin 1.5 liver function tests otherwise normal. Home cardiac medications: Amlodipine 5 mg daily, Eliquis 5 mg twice daily, aspirin 81 mg twice daily, atorvastatin 40 mg daily, lisinopril 20 mg daily, metoprolol tartrate 25 mg twice daily, potassium chloride 10 mill equivalents daily. Echocardiogram performed 03/27/2022 revealed mild LVH, EF 55 to 60%. Most recent echocardiogram performed 03/07/2023 in the office reveals EF of 45 to 50%. Global LV hypokinesis. Moderate concentric left ventricular hypertrophy. Moderate to severe aortic regurgitation. Ascending aorta is enlarged. Mild to moderate mitral regurgitation. Moderate tricuspid regurgitation. Normal pulmonary artery systolic pressure. Mild pulmonic regurgitation. Lexiscan Cardiolite stress test that was performed in the office on 03/06/2023 revealed inconclusive EKG part of the stress test due to baseline EKG abnormalities. Probably normal myocardial perfusion and function. Review Of Systems: At the time of my exam: CONSTITUTIONAL: Denies fever or chills. + Fatigue. HEENT: Denies blurred vision, vision changes, or eye pain. Denies hemoptysis CARDIOVASCULAR: Denies chest pain. Denies orthopnea. Denies PND. Denies palpitations RESPIRATORY: Denies shortness of breath. GASTROINTESTINAL: Denies abdominal pain. Denies nausea or vomiting. HEMATOLOGIC: Denies bleeding disorders. GENITOURINARY: Denies any blood in urine. SKIN: Denies pruitis. Denies rash. Physical examination: Gen: This is a 73-year-old male in no acute distress VS: reviewed blood pressure 136/85, heart rate 82, pulse ox 98% on room air. HEENT: Head is atraumatic, normocephalic. Pupils equal, round. Sclerae is anicteric. NECK: Supple. No JVD. LUNGS: Clear to auscultation. No wheezes or rhonchi. No intercostal retractions. HEART: Irregular Rate and rhythm. Diastolic murmur at the right parasternal border. ABDOMEN: Soft No tenderness. EXTREMITIES: No pedal edema. No calf tenderness. NEUROLOGICAL: Patient is awake, alert and oriented x3. Assessment: Acute coronary syndrome ruled out with negative troponins Chest pain Mild decrease in EF Persistent atrial fibrillation History of coronary artery disease with previous stent Hypertension Hyperlipidemia Valvular heart disease with moderate to severe aortic regurgitation, mild to moderate mitral regurgitation, moderate TR. Plan: The following medications have been made: Discontinue metoprolol tartrate and start patient on Toprol XL 50 mg daily Discontinue lisinopril which was last taken on 11/06 and start patient on Entresto 24 mg - 26 mg starting on Sunday evening Start Aldactone 25 mg daily Continue aspirin 81 mg daily and atorvastatin 40 mg daily Continue heparin drip and continue to hold Eliquis Obtain 2-D echocardiogram and Doppler study to assess cardiac structure and function Plan for possible cardiac catheterization with Dr. Sebastian Bhandari on Sunday Further recommendations to follow based upon clinical course Thank you kindly for this consultation. Nurse practitioner note has been reviewed, I agree with documented findings and plan of care. Patient was seen and examined. Past Medical History Past Medical History: Chest Pain / Angina, Hypertension Additional Past Medical History / Comment(s): states prior chest stenting History of Any Multi-Drug Resistant Organisms: None Reported Past Surgical History: Cholecystectomy, Orthopedic Surgery Additional Past Surgical History / Comment(s): rotator cuff left shoulder, Past Anesthesia/Blood Transfusion Reactions: No Reported Reaction Past Psychological History: Anxiety Smoking Status: Never smoker Past Alcohol Use History: Daily Additional Past Alcohol Use History / Comment(s): quit smoking at least 5 yrs ago, unsure when started Past Drug Use History: None Reported - Past Family History Mother Family Medical History: Cancer Brother(s) Family Medical History: Cancer Medications and Allergies Home Medications Medication Instructions Recorded Confirmed Type amLODIPine BESYLATE [Norvasc] 5 mg PO DAILY 08/14/16 11/07/23 History lisinopriL [Zestril] 20 mg PO DAILY 08/14/16 11/07/23 History Apixaban [Eliquis] 5 mg PO BID 03/26/22 11/07/23 History Aspirin EC [Ecotrin Low Dose] 81 mg PO BID 03/26/22 11/07/23 History Atorvastatin Calcium [Lipitor] 40 mg PO DAILY 03/26/22 11/07/23 History Metoprolol Tartrate [Lopressor] 25 mg PO BID 03/26/22 11/07/23 History Potassium Chloride [Klor-Con M10] 10 meq PO DAILY 03/26/22 11/07/23 History Cyanocobalamin (Vitamin B-12) 1,000 mcg PO DAILY 11/07/23 11/07/23 History [Vitamin B-12] Allergies Allergy/AdvReac Type Severity Reaction Status Date / Time tramadol Allergy heart Verified 11/07/23 12:38 failure cyclobenzaprine AdvReac Nausea & Verified 11/07/23 12:38 [From Flexeril] Vomiting naproxen [From Naprosyn] AdvReac Nausea & Verified 11/07/23 12:38 Vomiting Physical Exam Vitals: Vital Signs Temp Pulse Pulse Resp BP BP Pulse Ox 11/08/23 04:00 98.8 F 82 19 136/85 98 11/08/23 02:00 91 19 11/08/23 00:00 98.2 F 80 19 142/86 97 11/07/23 20:32 97 11/07/23 20:00 93 22 11/07/23 19:51 100.3 F H 93 22 169/80 97 11/07/23 19:00 95 29 H 142/87 94 L 11/07/23 18:30 85 32 H 149/94 93 L 11/07/23 18:00 96 143/95 96 11/07/23 17:30 105 H 18 153/97 98 11/07/23 17:00 98 22 151/101 98 11/07/23 16:30 95 169/100 97 11/07/23 15:30 84 28 H 160/94 95 11/07/23 15:00 86 20 152/87 98 11/07/23 14:00 92 18 172/99 96 11/07/23 13:00 91 18 153/97 99 11/07/23 12:30 84 19 152/95 98 11/07/23 12:04 137 H 16 11/07/23 11:48 98.6 F 116 H 18 158/94 98 Intake and Output 11/07/23 11/08/23 11/08/23 22:59 06:59 14:59 Intake Total 324.342 Output Total 250 Balance 324.342 -250 Intake: Intake, IV Titration 84.342 Amount Heparin Sod,Pork in 0.45% 84.342 NaCl 25,000 unit In 0.45 % NaCl 1 250ml.bag @ 10.4 UNITS/KG/HR 10.001 mls/ hr IV .Q24H [facility] Rx#: [id number] Oral 240 Output: Urine 250 Other: Voiding Method Toilet Toilet Urinal Urinal # Voids 1 Weight 96.162 kg 95.1 kg 95.1 kg Results 11/07/23 12:15 11/07/23 12:15 Cardiac Enzymes 11/07/23 11/07/23 11/07/23 Range/Units 12:15 12:15 16:12 AST 26 (17-59) U/L Troponin I 0.016 0.018 (0.000-0.034) ng/mL 11/07/23 Range/Units 19:56 AST (17-59) U/L Troponin I 0.023 (0.000-0.034) ng/mL Coagulation 11/07/23 11/07/23 Range/Units 12:15 19:56 PT 12.4 (10.0-12.5) sec APTT 30.2 H 54.0 H (22.0-30.0) sec CBC 11/07/23 Range/Units 12:15 WBC 10.1 (3.8-10.6) k/uL RBC 3.82 L (4.30-5.90) m/uL Hgb 12.8 L (13.0-17.5) gm/dL Hct 38.0 L (39.0-53.0) % Plt Count 173 (150-450) k/uL Comprehensive Metabolic Panel 11/07/23 Range/Units 12:15 Sodium 131 L (137-145) mmol/L Potassium 4.2 (3.5-5.1) mmol/L Chloride 102 (98-107) mmol/L Carbon Dioxide 22 (22-30) mmol/L BUN 16 (9-20) mg/dL Creatinine 1.05 (0.66-1.25) mg/dL Glucose 115 H (74-99) mg/dL Calcium 8.3 L (8.4-10.2) mg/dL AST 26 (17-59) U/L ALT 17 (4-49) U/L Alkaline Phosphatase 93 (38-126) U/L Total Protein 6.4 (6.3-8.2) g/dL Albumin 3.5 (3.5-5.0) g/dL Current Medications Generic Name Dose Route Start Last Admin Trade Name Freq PRN Reason Stop Dose Admin Acetaminophen 650 mg 11/07/23 13:34 11/07/23 20:14 Acetaminophen Tab 325 Mg Tab PO 650 mg Q6HR PRN Administration Mild Pain or Fever > 100.5 Aspirin 81 mg 11/07/23 21:00 11/07/23 20:14 Aspirin 81 Mg PO 81 mg BID KD Administration Atorvastatin Calcium 40 mg 11/08/23 09:00 Atorvastatin 40 Mg Tab PO DAILY [facility] Calcium Carbonate/Glycine 1,000 mg 11/07/23 20:32 Calcium Carbonate 500 Mg Chewable PO Q4HR PRN Dyspepsia Cyanocobalamin 1,000 mcg 11/08/23 09:00 Cyanocobalamin 500 Mcg Tab PO DAILY [facility] Heparin Sodium (Porcine) 0 unit 11/08/23 08:46 Heparin Sodium 1,000 Un/Ml (10ml Vl) IV PER PROTOCOL PRN Low PTT Protocol Heparin Sodium/Sodium Chloride 250 mls @ 9.986 mls/hr 11/08/23 09:00 25,000 unit/ Sodium Chloride IV .Q24H [facility] Protocol 10.5 UNITS/KG/HR Lactulose 20 gm 11/07/23 20:32 Lactulose 20 Gm/30 Ml Cup PO DAILY PRN Constipation Lorazepam 0.5 mg 11/07/23 20:32 Lorazepam 0.5 Mg Tab PO Q6HR PRN Anxiety Melatonin 3 mg 11/07/23 20:32 Melatonin 3 Mg Tablet PO HS PRN Insomnia Metoprolol Succinate 50 mg 11/08/23 12:00 Metoprolol Succinate (Er) 50 Mg Tab.Er.24h PO DAILY [facility] Naloxone HCl 0.2 mg 11/07/23 13:34 Naloxone 0.4 Mg/Ml 1 Ml Vial IV Q2M PRN Opioid Reversal Ondansetron HCl 4 mg 11/07/23 13:34 Ondansetron 4 Mg/2 Ml Vial IVP Q8HR PRN Nausea And Vomiting Pantoprazole Sodium 40 mg 11/08/23 09:00 Pantoprazole 40 Mg/10 Ml Vial IV DAILY [facility] Sacubitril/Valsartan 1 each 11/09/23 21:00 Sacubitril/Valsartan 24 Mg-26 Mg Tablet PO BID [facility] Spironolactone 25 mg 11/08/23 09:00 Spironolactone 25 Mg Tab PO DAILY [facility] Intake and Output 11/07/23 11/08/23 11/08/23 22:59 06:59 14:59 Intake Total 324.342 Output Total 250 Balance 324.342 -250 Intake: Intake, IV Titration 84.342 Amount Heparin Sod,Pork in 0.45% 84.342 NaCl 25,000 unit In 0.45 % NaCl 1 250ml.bag @ 10.4 UNITS/KG/HR 10.001 mls/ hr IV .Q24H [facility] Rx#: [id number] Oral 240 Output: Urine 250 Other: Voiding Method Toilet Toilet Urinal Urinal # Voids 1 Weight 96.162 kg 95.1 kg 95.1 kg Patient Weight 11/09/23 06:59 Weight 95.1 kg 11/07/23 12:15 11/07/23 12:15
[2023-11-08] MEDS: ATORVASTATIN 40 MG TAB PO SCH (09:26)
[2023-11-08] MEDS: CYANOCOBALAMIN 500 MCG TAB PO SCH (09:26)
[2023-11-08] MEDS: SPIRONOLACTONE 25 MG TAB PO SCH (09:26)
[2023-11-08] MEDS: HEPARIN SOD,PORK IN 0.45% NACL 25,000 UNIT in 0.45% NACL 1 250ML.BAG IV SCH (09:27)
[2023-11-08] MEDS: PANTOPRAZOLE 40 MG/10 ML VIAL IV SCH (09:27)
[2023-11-08 10:26] LABS: Basophils % (A) 0 %; Eosinophils % (A) 0 %; HCT 38.1 % (39.0-53.0); HGB 12.4 gm/dL (13.0-17.5); Lymphocytes # (A) 0.2 k/uL (1.0-4.8); Lymphocytes % (A) 3 %; MCH 32.8 pg (25.0-35.0); MCHC 32.6 g/dL (31.0-37.0); MCV 100.5 fL (80.0-100.0); Macrocytosis Slight; Monocytes # (A) 0.5 k/uL (0-1.0); Monocytes % (A) 6 %; Neutrophils # (A) 7.4 k/uL (1.3-7.7); Neutrophils % (A) 89 %; Platelet Count 151 k/uL (150-450); RBC 3.79 m/uL (4.30-5.90); RDW 14.2 % (11.5-15.5); WBC 8.3 k/uL (3.8-10.6)
[2023-11-08 10:45] LABS: INR 1.1 (<1.2); Prothrombin Time 11.7 sec (10.0-12.5)
[2023-11-08] MEDS ORDERED: NITROGLYCERIN SL TABS 0.4 MG TAB SUBLINGUAL PRN (12:00)
[2023-11-08] MEDS ORDERED: ALPRAZolam 0.25 MG TAB PO PRN (12:00)
[2023-11-08] MEDS ORDERED: SODIUM CHLORIDE 0.9% 1,000 ML IV SCH (12:15)
[2023-11-08] MEDS: METOPROLOL SUCCINATE (ER) 50 MG TAB.ER.24H PO SCH (12:54)
--- NOTE | 2023-11-08 16:36 | P.PN ---
Progress Note - Text Progress Note Date: 11/08/23 Chief Complaint: Chest pain This is a pleasant 73-year-old patient who used to follow with Dr. Hung. He thinks he now follows with Dr. Rowan. Chronic stable medical conditions include hypertension, hyperlipidemia, has known prior coronary with stent about 8 years ago[address] 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 This morning he developed pain across the chest while sitting in the morning. [place] a bit dizzy. Tired. Short of breath. No nausea no perspiration. Pain lateral focus quite some time. Patient not had any stress test recently November 07: Seen by cardiology today. Patient was switched from metoprolol to Toprol-XL 50. Lisinopril was discontinued and started on Entresto 24. Planning for cardiac catheterization tomorrow. Currently no chest pain. Active Medications Acetaminophen (Acetaminophen Tab 325 Mg Tab) 650 mg PO Q6HR PRN PRN Reason: Mild Pain or Fever > 100.5 Last Admin: 11/07/23 20:14 Dose: 650 mg Alprazolam (Alprazolam 0.25 Mg Tab) 0.25 mg PO Q6HR PRN PRN Reason: Mild Anxiety Alprazolam (Alprazolam 0.5 Mg Tab) 0.5 mg PO Q6HR PRN PRN Reason: Moderate Anxiety Aspirin (Aspirin 81 Mg) 81 mg PO DAILY [facility] Aspirin (Aspirin 325 Mg Tab) 325 mg PO ONCE ONE Stop: 11/09/23 06:01 Atorvastatin Calcium (Atorvastatin 40 Mg Tab) 40 mg PO DAILY [facility] Last Admin: 11/08/23 09:26 Dose: 40 mg Atorvastatin Calcium (Atorvastatin 80 Mg Tab) 80 mg PO ONCE ONE Stop: 11/09/23 06:01 Calcium Carbonate/Glycine (Calcium Carbonate 500 Mg Chewable) 1,000 mg PO Q4HR PRN PRN Reason: Dyspepsia Cyanocobalamin (Cyanocobalamin 500 Mcg Tab) 1,000 mcg PO DAILY [facility] Last Admin: 11/08/23 09:26 Dose: 1,000 mcg Heparin Sodium (Porcine) (Heparin Sodium 1,000 Un/Ml (10ml Vl)) 0 unit IV PER PROTOCOL PRN; Protocol PRN Reason: Low PTT Heparin Sodium/Sodium Chloride (25,000 unit/ Sodium Chloride) 250 mls @ 9.986 mls/hr IV .Q24H [facility]; Protocol Stop: 11/09/23 05:00 Last Admin: 11/08/23 12:56 Dose: 10.52 units/kg/hr, 10.005 mls/hr Heparin Sodium (Porcine) 10, (000 unit/ Sodium Chloride) 1,001 mls @ 999 mls/hr IRRIGATION ONCE PRN PRN Reason: INTRA-OP Stop: 11/09/23 23:00 Heparin Sodium (Porcine) 2,500 (unit/ Sodium Chloride) 250.5 mls @ 250 mls/hr IRRIGATION ONCE PRN PRN Reason: INTRA-OP Stop: 11/09/23 23:00 Sodium Chloride (Saline 0.9%) 1,000 mls @ 50 mls/hr IV .Q20H [facility] Lactulose (Lactulose 20 Gm/30 Ml Cup) 20 gm PO DAILY PRN PRN Reason: Constipation Lorazepam (Lorazepam 0.5 Mg Tab) 0.5 mg PO Q6HR PRN PRN Reason: Anxiety Melatonin (Melatonin 3 Mg Tablet) 3 mg PO HS PRN PRN Reason: Insomnia Metoprolol Succinate (Metoprolol Succinate (Er) 50 Mg Tab.Er.24h) 50 mg PO D AILY [facility] Last Admin: 11/08/23 12:54 Dose: 50 mg Naloxone HCl (Naloxone 0.4 Mg/Ml 1 Ml Vial) 0.2 mg IV Q2M PRN PRN Reason: Opioid Reversal Nitroglycerin (Nitroglycerin Sl Tabs 0.4 Mg Tab) 0.4 mg SUBLINGUAL Q5M PRN PRN Reason: Chest Pain Ondansetron HCl (Ondansetron 4 Mg/2 Ml Vial) 4 mg IVP Q8HR PRN PRN Reason: Nausea And Vomiting Pantoprazole Sodium (Pantoprazole 40 Mg Tablet) 40 mg PO AC-[id number] [facility] Sacubitril/Valsartan (Sacubitril/Valsartan 24 Mg-26 Mg Tablet) 1 each PO BID [facility] Spironolactone (Spironolactone 25 Mg Tab) 25 mg PO DAILY [facility] Last Admin: 11/08/23 09:26 Dose: 25 mg Social history: . Stop smoking 5 years ago. Did drink alcohol Physical examination: VITAL SIGNS: 97.7, 69, 16, 130 x 81, 94% room air GENERAL: Bed, comfortable EYES: Pupils equal. Conjunctiva estrellita l. HEENT: External appearance of nose and ears normal, oral cavity grossly normal. NECK: JVD not raised; masses not palpable. HEART: First and second heart sounds are normal; no edema. LUNGS: Respiratory rate normal; clear to auscultation. ABDOMEN: Soft, nontender, liver spleen not palpable, no masses palpable. PSYCH: Alert and oriented x3; mood and affect estrellita l. MUSCULOSKELETAL:No Clubbing/cyanosis;muscles-grossly intact. OA INVESTIGATIONS, reviewed in the clinical context: November 07: White count 8.3 hemoglobin 12.4 platelets 151. proBNP 8910 November 07, 2023: White count 10.1 hemoglobin 12.8 platelets 173 sodium 131 potassium 4.2 creatinine 1.05 Troponin I 0.016, 0.018, 0.023 EKG tracing personally reviewed by me-atrial flutter fibrillation, ST segment depressed in inferolateral leads. Chest x-ray film personally reviewed by me-some hyperinflation Assessment plan: -Unstable angina in a patient with known coronary artery disease stent about 8 years ago. Patient has EKG changes in inferolateral leads. Troponins are borderline. Aspirin. Lipitor. Lopressor. IV heparin. Cardiology-planning for cardiac catheterization tomorrow -Coronary artery disease prior history of stent 8 years ago[address] with Dr[address] Sebastian Bhandari Amlodipine. Lopressor. -Persistent atrial flutter fibrillation, rate controlled Lopressor 25 mg twice daily Eliquis held. IV heparin -IV heparin monitoring Follow PTT -Essential hypertension Zestril 20 mg a day amlodipine 5 mg a day Lopressor 25 mg twice daily -Hyperlipidemia Lipitor 40 mg a day Medication adjusted by cardiology. For cardiac catheterization tomorrow. Past Medical History Past Medical History: Chest Pain / Angina, Hypertension Additional Past Medical History / Comment(s): states prior chest stenting History of Any Multi-Drug Resistant Organisms: None Reported Past Surgical History: Cholecystectomy, Orthopedic Surgery Additional Past Surgical History / Comment(s): rotator cuff left shoulder, Past Anesthesia/Blood Transfusion Reactions: No Reported Reaction Past Psychological History: Anxiety Smoking Status: Never smoker Past Alcohol Use History: Daily Additional Past Alcohol Use History / Comment(s): quit smoking at least 5 yrs ago, unsure when started Past Drug Use History: None Reported
[2023-11-08] MEDS: LACTULOSE 20 GM/30 ML CUP PO PRN (20:09)
[2023-11-08] MEDS: SODIUM CHLORIDE 0.9% 1,000 ML IV SCH (21:58)
[2023-11-09] MEDS: ASPIRIN 81 MG PO SCH (04:35)
[2023-11-09] MEDS: ASPIRIN 325 MG TAB PO ONE (05:43)
[2023-11-09] MEDS: ATORVASTATIN 80 MG TAB PO ONE (05:43)
[2023-11-09] MEDS: PANTOPRAZOLE 40 MG TABLET PO SCH (05:44)
[2023-11-09] MEDS ORDERED: HEPARIN SODIUM,PORCINE 10,000 UNIT in SODIUM CHLORIDE 0.9% 1,000 ML IRRIGATION PRN (07:00)
[2023-11-09] MEDS ORDERED: HEPARIN SODIUM,PORCINE (1 ML) 2,500 UNIT in SODIUM CHLORIDE 0.9% 250 ML IRRIGATION PRN (07:00)
[2023-11-09] MEDS: IV FLUID CONTINUATION 1,000 ML IV ONE (07:40)
[2023-11-09] MEDS ORDERED: HEPARIN SODIUM 1,000 UN/ML (10ML VL) ONE (07:53)
[2023-11-09] MEDS ORDERED: LIDOCAINE 1% INJ 10MG/ML (20 ML MDV) ONE (07:53)
[2023-11-09] MEDS ORDERED: fentaNYL (PF) 50 MCG/ML 2 ML AMP ONE (07:54)
[2023-11-09] MEDS ORDERED: VERAPAMIL 2.5 MG/ML 2 ML AMP ONE (07:54)
[2023-11-09] MEDS: MIDAZOLAM 2 MG/2 ML VIAL IVP ONE (07:58)
[2023-11-09] MEDS: LIDOCAINE 1% INJ 10MG/ML (20 ML MDV) SQ ONE (07:58)
[2023-11-09] MEDS: fentaNYL (PF) 50 MCG/ML 2 ML AMP IVP ONE (07:58)
[2023-11-09] MEDS: VERAPAMIL SYRINGE (5 MG/10 ML) INTRAARTER ONE (08:00)
[2023-11-09] MEDS: HEPARIN SODIUM 1,000 UN/ML (10ML VL) IV ONE (08:04)
[2023-11-09] MEDS: IOPAMIDOL-370 100ML BTL INJ ONE (08:12)
[2023-11-09] MEDS ORDERED: RX INFO: IV CONTRAST WAS GIVEN 1 EACH MISC MISCELLANE PRN (09:16)
--- NOTE | 2023-11-09 09:38 | CA ---
Transthoracic Echo Report Name: Donta Chakraborty Age: 73 Gender: M : 1950 Exam Date: 11/08/2023 14:16 Exam Location: [facility] Ht (in): 72 Wt (lb): 209 Ordering Physician: Lisa Max Attending/Referring Phys: [id number], [employer] Breana Beltran RDCS Procedure CPT: Indications: LVF Cardiac Hx: Technical Quality: Fair Contrast 1: Total Dose (mL): Contrast 2: Total Dose (mL): MEASUREMENTS (Male / Female) Normal Values 2D ECHO LV Diastolic Diameter PLAX 4.8 cm 4.2 - 5.9 / 3.9 - 5.3 cm LV Systolic Diameter PLAX 4.3 cm IVS Diastolic Thickness 1.4 cm 0.6 - 1.0 / 0.6 - 0.9 cm LVPW Diastolic Thickness 1.4 cm 0.6 - 1.0 / 0.6 - 0.9 cm LV Relative Wall Thickness 0.6 RV Internal Dim ED PLAX 4.0 cm LA Systolic Diameter LX 4.7 cm 3.0 - 4.0 / 2.7 - 3.8 cm LA Volume 112.8 cm??? 18 - 58 / 22 - 52 cm??? LA Volume Index 51.0 cm???/m??? 16 - 28 cm???/m??? M-MODE Aortic Root Diameter MM 4.3 cm DOPPLER AV Peak Velocity 126.8 cm/s AV Peak Gradient 6.4 mmHg AI Peak Velocity 333.6 cm/s AI Peak Gradient 44.5 mmHg AI Pressure Half Time 589.4 ms MV Area PHT 5.9 cm??? MV Deceleration Time 133.3 ms TR Peak Velocity 213.4 cm/s TR Peak Gradient 18.2 mmHg Right Ventricular Systolic Press 23.2 mmHg FINDINGS Left Ventricle Left ventricular ejection fraction is estimated at 45-50 %. Left ventricular cavity size normal. Moderate concentric left ventricular hypertrophy. Mildly reduced global left ventricular systolic function. Right Ventricle Moderate right ventricular dilatation. Right ventricular systolic pressure within normal limits. Right Atrium Moderate right atrial dilatation. Left Atrium Moderately increased left atrial diameter. Severely increased left atrial volume. Mildly increased left atrial area. Mitral Valve Structurally normal mitral valve. Mild mitral regurgitation. Aortic Valve Trileaflet aortic valve. Mild aortic regurgitation. Tricuspid Valve Structurally normal tricuspid valve. Mild tricuspid regurgitation. Pulmonic Valve Structurally normal pulmonic valve. Trace to mild pulmonic regurgitation. Pericardium No pericardial effusion. Aorta Moderate aortic dilatation at the level of the sinuses of valsalva 43 mm CONCLUSIONS Normal LV size mild global decrease in contractility. Patient is in the irregular rhythm. No segmental wall motion abnormality. Mild mitral and tricuspid regurgitation. Aortic valve sclerosis no stenosis mild aortic regurgitation no pericardial effusion Previewed by: Dr. Majo Barron MD (Electronically Signed) Final Date: 09 November 2023 09:37
--- NOTE | 2023-11-09 12:17 | P.PN ---
Subjective Progress Note Date: 11/09/23 Reason for Consult (text): New onset atrial fibrillation, chest pain History of present illness: This is a 73-year-old male patient of Dr. Sebastian Bhandari with past medical history of coronary artery disease with previous stent, permanent atrial fibrillation on Eliquis with rate controlled, hypertension, hyperlipidemia, moderate aortic insufficiency. We have been asked to evaluate the patient for new onset atrial fibrillation and chest pain. Patient states that he has had fevers headache body aches cough and went to the walk-in clinic. He thought he had COVID again. He tested negative for COVID and influenza A and influenza B. Patient also complains of chest pain on the left side as well as left arm discomfort that his woke him from sleep. He has had this on and off for a while. No injuries to his chest or left arm. He is able to lay flat in bed. He states he was not aware that he had atrial fibrillation. Patient has been started on a heparin drip. EKG atrial fibrillation rate controlled Chest x-ray: No acute process WBC 10, hemoglobin 12.8. INR 1.2. D-dimer 0.3. Sodium 131, potassium 4.2, BUN 16 creatinine 1.05. Troponins negative x 3. Calcium 8.3. Magnesium 1.7. Total bilirubin 1.5 liver function tests otherwise normal. Home cardiac medications: Amlodipine 5 mg daily, Eliquis 5 mg twice daily, aspirin 81 mg twice daily, atorvastatin 40 mg daily, lisinopril 20 mg daily, metoprolol tartrate 25 mg twice daily, potassium chloride 10 mill equivalents daily. Echocardiogram performed 03/27/2022 revealed mild LVH, EF 55 to 60%. Most recent echocardiogram performed 03/07/2023 in the office reveals EF of 45 to 50%. Global LV hypokinesis. Moderate concentric left ventricular hypertrophy. Moderate to severe aortic regurgitation. Ascending aorta is enlarged. Mild to moderate mitral regurgitation. Moderate tricuspid regurgitation. Normal pulmonary artery systolic pressure. Mild pulmonic regurgitation. Lexiscan Cardiolite stress test that was performed in the office on 03/06/2023 revealed inconclusive EKG part of the stress test due to baseline EKG abnormalities. Probably normal myocardial perfusion and function. 11/08 Patient underwent cardiac catheterization today with Dr. Sebastian Bhandari that revealed no significant coronary artery disease and medical management recommended. Patient denies having any chest pain at this time. Blood pressure 133/84,Heart rate in the 70s and 80s, pulse ox 95% on room air. Echocardiogram performed 11/08/2023 reveals EF of 45 to 50%. Mild mitral and tricuspid regurgitation. Aortic valve sclerosis and no stenosis. Mild aortic regurgitation. No pericardial effusion. Patient's is concerned why he experienced fatigue and shortness of breath if cath was normal. Describe patient's echocardiogram and EF and plan is to maximize CHF therapy. Physical examination: Gen: This is a 73-year-old male in no acute distress VS: reviewed HEENT: Head is atraumatic, normocephalic. Pupils equal, round. Sclerae is anicteric. NECK: Supple. No JVD. LUNGS: Clear to auscultation. No wheezes or rhonchi. No intercostal retractions. HEART: Irregular Rate and rhythm. Diastolic murmur at the right parasternal border. ABDOMEN: Soft No tenderness. EXTREMITIES: No pedal edema. No calf tenderness. NEUROLOGICAL: Patient is awake, alert and oriented x3. Assessment: Acute coronary syndrome ruled out with negative troponins Chest pain Mild decrease in EF Persistent atrial fibrillation History of coronary artery disease with previous stent Hypertension Hyperlipidemia Valvular heart disease with moderate to severe aortic regurgitation, mild to moderate mitral regurgitation, moderate TR. Plan: Continue Entresto 24 mg - 26 mg starting on Sunday evening. Plan is to maximize this in the outpatient setting Continue Aldactone 25 mg daily and add Farxiga 10 mg daily Continue aspirin 81 mg daily and atorvastatin 40 mg daily Patient is cleared for discharge from cardiology and may follow-up in the office with Dr. Bhandari in 1 to 2 weeks. Nurse practitioner note has been reviewed, I agree with documented findings and plan of care. Patient was seen and examined. Objective - Vital Signs Vital signs: Vital Signs Temp 98.2 F 11/09/23 04:00 Pulse 77 11/09/23 04:00 Resp 17 11/09/23 04:00 BP 134/89 11/09/23 04:00 Pulse Ox 95 11/09/23 04:00 FiO2 Intake & Output 11/08/23 11/09/23 11/09/23 18:59 06:59 18:59 Intake Total 514.785 240 100 Output Total 300 Balance 514.785 -60 100 Weight 95.1 kg 98 kg Intake: IV 100 Intake, IV Titration 34.785 Amount Heparin Sod,Pork in 0.45% 34.785 NaCl 25,000 unit In 0.45 % NaCl 1 250ml.bag @ 10.5 UNITS/KG/HR 9.986 mls/hr IV .Q24H [facility] Rx#: [id number] Oral 480 240 Output: Urine 300 Other: Voiding Method Toilet Urinal # Voids 1 - Labs CBC & Chem 7: 11/08/23 09:43 11/07/23 12:15 Labs: Abnormal Lab Results - Last 24 Hours (Table) 11/08/23 11/08/23 Range/Units 09:43 17:08 RBC 3.79 L (4.30-5.90) m/uL Hgb 12.4 L (13.0-17.5) gm/dL Hct 38.1 L (39.0-53.0) % MCV 100.5 H (80.0-100.0) fL Lymphocytes # 0.2 L (1.0-4.8) k/uL APTT 45.3 H (22.0-30.0) sec
[2023-11-09] MEDS: DAPAGLIFLOZIN PROPANEDIOL 10 MG TABLET PO SCH (12:31)
--- NOTE | 2023-11-09 15:08 | P.PN ---
Progress Note - Text Progress Note Date: 11/09/23 Chief Complaint: Chest pain This is a pleasant 73-year-old patient who used to follow with Dr. Hung. He thinks he now follows with Dr. Rowan. Chronic stable medical conditions include hypertension, hyperlipidemia, has known prior coronary with stent about 8 years ago. Follow[address] with Dr. 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 This morning he developed pain across the chest while sitting in the morning. [place] a bit dizzy. Tired. Short of breath. No nausea no perspiration. Pain lateral focus quite some time. Patient not had any stress test recently November 07: Seen by cardiology today. Patient was switched from metoprolol to Toprol-XL 50. Lisinopril was discontinued and started on Entresto 24. Planning for cardiac catheterization tomorrow. Currently no chest pain. November 08: Patient underwent cardiac catheterization by Dr. Sebastian Bhandari. No significant disease. would like the patient to be held back today. Hopefully then can be discharged tomorrow. Active Medications Acetaminophen (Acetaminophen Tab 325 Mg Tab) 650 mg PO Q6HR PRN PRN Reason: Mild Pain or Fever > 100.5 Last Admin: 11/07/23 20:14 Dose: 650 mg Alprazolam (Alprazolam 0.25 Mg Tab) 0.25 mg PO Q6HR PRN PRN Reason: Mild Anxiety Alprazolam (Alprazolam 0.5 Mg Tab) 0.5 mg PO Q6HR PRN PRN Reason: Moderate Anxiety Apixaban (Apixaban 5 Mg Tab) 5 mg PO BID [facility]; Protocol Aspirin (Aspirin 81 Mg) 81 mg PO DAILY [facility] Last Admin: 11/09/23 04:35 Dose: Not Given Atorvastatin Calcium (Atorvastatin 40 Mg Tab) 40 mg PO DAILY [facility] Last Admin: 11/09/23 04:35 Dose: Not Given Calcium Carbonate/Glycine (Calcium Carbonate 500 Mg Chewable) 1,000 mg PO Q4HR PRN PRN Reason: Dyspepsia Cyanocobalamin (Cyanocobalamin 500 Mcg Tab) 1,000 mcg PO DAILY [facility] Last Admin: 11/09/23 05:43 Dose: 1,000 mcg Dapagliflozin (Dapagliflozin Propanediol 10 Mg Tablet) 10 mg PO DAILY [facility] Last Admin: 11/09/23 12:31 Dose: 10 mg Heparin Sodium (Porcine) 10, (000 unit/ Sodium Chloride) 1,001 mls @ 999 mls/hr IRRIGATION ONCE PRN PRN Reason: INTRA-OP Stop: 11/09/23 23:00 Heparin Sodium (Porcine) 2,500 (unit/ Sodium Chloride) 250.5 mls @ 250 mls/hr IRRIGATION ONCE PRN PRN Reason: INTRA-OP Stop: 11/09/23 23:00 Sodium Chloride (Saline 0.9%) 1,000 mls @ 50 mls/hr IV .Q20H [facility] Last Admin: 11/08/23 21:58 Dose: 50 mls/hr Lactulose (Lactulose 20 Gm/30 Ml Cup) 20 gm PO DAILY PRN PRN Reason: Constipation Last Admin: 11/08/23 20:09 Dose: 20 gm Lorazepam (Lorazepam 0.5 Mg Tab) 0.5 mg PO Q6HR PRN PRN Reason: Anxiety Melatonin (Melatonin 3 Mg Tablet) 3 mg PO HS PRN PRN Reason: Insomnia Metoprolol Succinate (Metoprolol Succinate (Er) 50 Mg Tab.Er.24h) 50 mg PO DAILY [facility] Last Admin: 11/09/23 05:43 Dose: 50 mg Miscellaneous Information (Rx Info: Iv Contrast Was Given 1 Each Misc) 1 each MISCELLANE DAILY PRN PRN Reason: Per Protocol Stop: 11/11/23 09:16 Naloxone HCl (Naloxone 0.4 Mg/Ml 1 Ml Vial) 0.2 mg IV Q2M PRN PRN Reason: Opioid Reversal Nitroglycerin (Nitroglycerin Sl Tabs 0.4 Mg Tab) 0.4 mg SUBLINGUAL Q5M PRN PRN Reason: Chest Pain Ondansetron HCl (Ondansetron 4 Mg/2 Ml Vial) 4 mg IVP Q8HR PRN PRN Reason: Nausea And Vomiting Pantoprazole Sodium (Pantoprazole 40 Mg Tablet) 40 mg PO AC-BRKFST [facility] Last Admin: 11/09/23 05:44 Dose: 40 mg Sacubitril/Valsartan (Sacubitril/Valsartan 24 Mg-26 Mg Tablet) 1 each PO BID [facility] Spironolactone (Spironolactone 25 Mg Tab) 25 mg PO DAILY [facility] Last Admin: 11/09/23 05:43 Dose: 25 mg Social history: . Stop smoking 5 years ago. Did drink alcohol Physical examination: VITAL SIGNS: 98.2, 16, 133/84, 95% room air GENERAL: Laying in bed, comfortable EYES: Pupils equal. Conjunctiva estrellita l. HEENT: External appearance of nose and ears normal, oral cavity grossly normal. NECK: JVD not raised; masses not palpable. HEART: First and second heart sounds are normal; no edema. LUNGS: Respiratory rate normal; clear to auscultation. ABDOMEN: Soft, nontender, liver spleen not palpable, no masses palpable. PSYCH: Alert and oriented x3; mood and affect estrellita l. MUSCULOSKELETAL:No Clubbing/cyanosis;muscles-grossly intact. OA INVESTIGATIONS, reviewed in the clinical context: Cardiac catheterization: [Formal report pending] no major abnormality reported November 07: White count 8.3 hemoglobin 12.4 platelets 151. proBNP 8910 November 07, 2023: White count 10.1 hemoglobin 12.8 platelets 173 sodium 131 potassium 4.2 creatinine 1.05 Troponin I 0.016, 0.018, 0.023 EKG tracing personally reviewed by me-atrial flutter fibrillation, ST segment depressed in inferolateral leads. Chest x-ray film personally reviewed by me-some hyperinflation Assessment plan: -Unstable angina in a patient with known coronary artery disease stent about 8 years ago. Patient has EKG changes in inferolateral leads. Troponins are borderline. Aspirin. Lipitor. Lopressor. IV heparin. Cardiac catheterization did not show any significant disease w -Coronary artery disease prior history of stent 8 years [address] with [address] Sebastian Bhandari Amlodipine. Lopressor. -Persistent atrial flutter fibrillation, rate controlled Lopressor 25 mg twice daily Eliquis held. IV heparin -IV heparin monitoring-discontinued Follow PTT -Essential hypertension Zestril 20 mg a day amlodipine 5 mg a day Lopressor 25 mg twice daily -Hyperlipidemia Lipitor 40 mg a day Continue current medications. requesting 1 more day stay in the hospital. DC tomorrow Past Medical History Past Medical History: Chest Pain / Angina, Hypertension Additional Past Medical History / Comment(s): states prior chest stenting History of Any Multi-Drug Resistant Organisms: None Reported Past Surgical History: Cholecystectomy, Orthopedic Surgery Additional Past Surgical History / Comment(s): rotator cuff left shoulder, Past Anesthesia/Blood Transfusion Reactions: No Reported Reaction Past Psychological History: Anxiety Smoking Status: Never smoker Past Alcohol Use History: Daily Additional Past Alcohol Use History / Comment(s): quit smoking at least 5 yrs ago, unsure when started Past Drug Use History: None Reported
[2023-11-09] MEDS: APIXABAN 5 MG TAB PO SCH (20:02)
[2023-11-09] MEDS: SACUBITRIL/VALSARTAN 24 MG-26 MG TABLET PO SCH (20:02)
[2023-11-10 08:11] LABS: African American GFR (CKD) >90 (>60 ml/min/1.73 sqM); Anion Gap 9 mmol/L; Blood Urea Nitrogen 14 mg/dL (9-20); Calcium 8.3 mg/dL (8.4-10.2); Carbon Dioxide 21 mmol/L (22-30); Chloride 105 mmol/L (98-107); Glucose 107 mg/dL (74-99); Non-African American GFR(CKD) 85 (>60 ml/min/1.73 sqM); Potassium 3.5 mmol/L (3.5-5.1); Sodium 135 mmol/L (137-145)
--- NOTE | 2023-11-10 19:08 | US ---
EXAMINATION TYPE: US venous doppler duplex LE LT DATE OF EXAM: 11/10/2023 6:39 PM COMPARISON: NONE CLINICAL INDICATION: Male, 73 years old with history of r/o dvt; pain SIDE PERFORMED: Left TECHNIQUE: The lower extremity deep venous system is examined utilizing real time linear array sonog yumiko with graded compression, doppler sonography and color-flow sonography. VESSELS IMAGED: Common Femoral Vein Deep Femoral Vein Greater Saphenous Vein * Femoral Vein Popliteal Vein Small Saphenous Vein * Proximal Calf Veins (* superficial vessels) Left Leg: Negative for DVT IMPRESSION: Grayscale, color doppler, spectral doppler imaging performed of the deep veins of the lo wer extremities. There is normal flow, compressibility, vascular waveforms.
--- NOTE | 2023-11-10 23:20 | P.PN ---
Subjective This is a pleasant 73-year-old patient who used to follow with Dr. Hung. He thinks he now follows with Dr. Rowan. Chronic stable medical conditions include hypertension, hyperlipidemia, has known prior coronary with stent about 8 years ago. Follows with Dr. Bhandari as his home health care provider. This morning he developed pain across the chest while sitting in the morning. [place] a bit dizzy. Tired. Short of breath. No nausea no perspiration. Pain lateral focus quite some time. Patient not had any stress test recently November 07: Seen by cardiology today. Patient was switched from metoprolol to Toprol-XL 50. Lisinopril was discontinued and started on Entresto 24. Planning for cardiac catheterization tomorrow. Currently no chest pain. November 08: Patient underwent cardiac catheterization by Dr. Sebastian Bhandari. No significant disease. would like the patient to be held back today. Hopefully then can be discharged tomorrow. 11/10/2023 This is a pleasant 73 years old female who presents with dyspnea and some GI symptoms and chest pain, patient evaluated by home health care provider and they made some changes in her blood pressure medication by holding lisinopril and milligrams Continue with metoprolol and Entresto start Farxiga. Currently she is hemodynamically stable She has no fever. She has low-grade fever on admission which is resolved now BMP and liver enzymes were unremarkable Hemoglobin 12.8. WBCs 8 D-dimer is -0.3 Ejection fraction 45 to 50% chest x-ray is negative for acute process She is also on Normosol 50 mL/h, cefazolin Patient was cleared by home health care provider yesterday for discharge however the wanted and wished to stay 1 more night, this morning she is admitted in bed comfortable denies chest pain or dyspnea No other complaints However his left leg is swollen right and tender from the knee and below sparing the foot Patient and agreed send hospital for now Discussed with staff Active Medications Generic Name Dose Route Start Last Admin Trade Name Freq PRN Reason Stop Dose Admin Acetaminophen 650 mg 11/07/23 13:34 11/07/23 20:14 Acetaminophen Tab 325 Mg Tab PO 650 mg Q6HR PRN Administration Mild Pain or Fever > 100.5 Alprazolam 0.25 mg 11/08/23 12:00 Alprazolam 0.25 Mg Tab PO Q6HR PRN Mild Anxiety Alprazolam 0.5 mg 11/08/23 12:00 Alprazolam 0.5 Mg Tab PO Q6HR PRN Moderate Anxiety Apixaban 5 mg 11/09/23 21:00 11/10/23 19:33 Apixaban 5 Mg Tab PO 5 mg BID KD Administration Protocol Aspirin 81 mg 11/09/23 09:00 11/10/23 08:04 Aspirin 81 Mg PO 81 mg DAILY KD Administration Atorvastatin Calcium 40 mg 11/08/23 09:00 11/10/23 08:05 Atorvastatin 40 Mg Tab PO 40 mg DAILY KD Administration Calcium Carbonate/Glycine 1,000 mg 11/07/23 20:32 Calcium Carbonate 500 Mg Chewable PO Q4HR PRN Dyspepsia Cyanocobalamin 1,000 mcg 11/08/23 09:00 11/10/23 08:05 Cyanocobalamin 500 Mcg Tab PO 1,000 mcg DAILY KD Administration Dapagliflozin 10 mg 11/09/23 10:00 11/10/23 08:05 Dapagliflozin Propanediol 10 Mg Tablet PO 10 mg DAILY KD Administration Sodium Chloride 1,000 mls @ 50 mls/hr 11/08/23 22:00 11/10/23 15:02 Saline 0.9% IV Not Given .Q20H KD Cefazolin Sodium 2 gm/ Sodium 50 mls @ 100 mls/hr 11/10/23 17:15 11/10/23 23:12 Chloride IVPB 100 mls/hr Q8HR KD Administration Protocol Lactulose 20 gm 11/07/23 20:32 11/08/23 20:09 Lactulose 20 Gm/30 Ml Cup PO 20 gm DAILY PRN Administration Constipation Lorazepam 0.5 mg 11/07/23 20:32 Lorazepam 0.5 Mg Tab PO Q6HR PRN Anxiety Melatonin 3 mg 11/07/23 20:32 Melatonin 3 Mg Tablet PO HS PRN Insomnia Metoprolol Succinate 50 mg 11/08/23 12:00 11/10/23 08:05 Metoprolol Succinate (Er) 50 Mg Tab.Er.24h PO 50 mg DAILY KD Administration Miscellaneous Information 1 each 11/09/23 09:16 Rx Info: Iv Contrast Was Given 1 Each Misc MISCELLANE 11/11/23 09:16 DAILY PRN Per Protocol Naloxone HCl 0.2 mg 11/07/23 13:34 Naloxone 0.4 Mg/Ml 1 Ml Vial IV Q2M PRN Opioid Reversal Nitroglycerin 0.4 mg 11/08/23 12:00 Nitroglycerin Sl Tabs 0.4 Mg Tab SUBLINGUAL Q5M PRN Chest Pain Ondansetron HCl 4 mg 11/07/23 13:34 Ondansetron 4 Mg/2 Ml Vial IVP Q8HR PRN Nausea And Vomiting Pantoprazole Sodium 40 mg 11/09/23 07:30 11/10/23 06:40 Pantoprazole 40 Mg Tablet PO 40 mg AC-BRKFST KD Administration Sacubitril/Valsartan 1 each 11/09/23 21:00 11/10/23 19:33 Sacubitril/Valsartan 24 Mg-26 Mg Tablet PO 1 each BID KD Administration Spironolactone 25 mg 11/08/23 09:00 11/10/23 08:05 Spironolactone 25 Mg Tab PO 25 mg DAILY KD Administration Objective - Vital Signs Vital signs: Vital Signs Temp 98.6 F 11/10/23 08:00 Pulse 62 11/10/23 16:00 Resp 16 11/10/23 16:00 BP 121/75 11/10/23 16:00 Pulse Ox 96 11/10/23 16:00 FiO2 Intake & Output 11/09/23 11/10/23 11/10/23 18:59 06:59 18:59 Intake Total 698 838 Output Total 300 2090 400 Balance 398 -2090 438 Intake: IV 100 Oral 598 838 Output: Urine 300 2090 400 Other: Voiding Method Toilet Urinal # Voids 2 1 - Exam GENERAL: The patient is alert and oriented x3, not in any acute distress. Well developed, well nourished. HEENT: Pupils are round and equally reacting to light. EOMI. No scleral icterus. No conjunctival pallor. Normocephalic, atraumatic. No pharyngeal erythema. No thyromegaly. CARDIOVASCULAR: S1 and S2 present. No murmurs, rubs, or gallops. PULMONARY: Chest is clear to auscultation, no wheezing , no crackles. ABDOMEN: Soft, nontender, nondistended, normoactive bowel sounds. No palpable organomegaly. MUSCULOSKELETAL: No joint swelling or deformity. Left leg is -EXTREMITIES: No cyanosis, clubbing, or pedal edema. Left leg is swollen red and tender NEUROLOGICAL: Gross neurological examination did not reveal any focal deficits. SKIN: No rashes. no petechiae. - Labs CBC & Chem 7: 11/08/23 09:43 11/10/23 07:40 Labs: Abnormal Lab Results - Last 24 Hours (Table) 11/10/23 Range/Units 07:40 Sodium 135 L (137-145) mmol/L Carbon Dioxide 21 L (22-30) mmol/L Glucose 107 H (74-99) mg/dL Calcium 8.3 L (8.4-10.2) mg/dL Assessment and Plan Assessment: Acute left leg cellulitis Chest pain, cardiac causes ruled out at resolved now Paroxysmal atrial fibrillation on Eliquis Hypertension Hyperlipidemia Coronary artery disease s/p stent Mild anemia Plan: Continue with Eliquis Continue with aspirin 81 mg Start cefazolin Continue with antihypertensive medication recommended by home health care provider metoprolPedro jordan Farxiga DVT prophylaxis on Eliquis GI prophylaxis Protonix Prognosis is guarded
[2023-11-11] MEDS: HYDROcodone/APAP 5-325MG 1 EACH TAB PO STA (04:15)
[2023-11-11] MEDS: DICLOFENAC SODIUM GEL 50 GM TUBE TOPICAL SCH (11:56)
[2023-11-11] MEDS: HYDROcodone/APAP 5-325MG 1 EACH TAB PO PRN (11:56)
--- NOTE | 2023-11-11 22:37 | P.PN ---
Subjective This is a pleasant 73-year-old patient who used to follow with Dr. Hung. He thinks he now follows with Dr. Rowan. Chronic stable medical conditions include hypertension, hyperlipidemia, has known prior coronary with stent about 8 years ago. Follow[address] with Dr. Bhandari as his origination specialist. This morning he developed pain across the chest while sitting in the morning. [place] a bit dizzy. Tired. Short of breath. No nausea no perspiration. Pain lateral focus quite some time. Patient not had any stress test recently November 07: Seen by cardiology today. Patient was switched from metoprolol to Toprol-XL 50. Lisinopril was discontinued and started on Entresto 24. Planning for cardiac catheterization tomorrow. Currently no chest pain. November 08: Patient underwent cardiac catheterization by Dr. Sebastian Bhandari. No significant disease. would like the patient to be held back today. Hopefully then can be discharged tomorrow. 11/10/2023 This is a pleasant 73 years old female who presents with dyspnea and some GI symptoms and chest pain, patient evaluated by origination specialist and they made some changes in her blood pressure medication by holding lisinopril and milligrams Continue with metoprolol and Entresto start Farxiga. Currently she is hemodynamically stable She has no fever. She has low-grade fever on admission which is resolved now BMP and liver enzymes were unremarkable Hemoglobin 12.8. WBCs 8 D-dimer is -0.3 Ejection fraction 45 to 50% chest x-ray is negative for acute process She is also on Normosol 50 mL/h, cefazolin Patient was cleared by origination specialist yesterday for discharge however the wanted and wished to stay 1 more night, this morning she is admitted in bed comfortable denies chest pain or dyspnea No other complaints However his left leg is swollen right and tender from the knee and below sparing the foot Patient and agreed send hospital for now Discussed with staff 11/11/2023 Patient still has cellulitis of the left lower extremity, partially improved. Continue monitoring Patient and at bedside do not feel comfortable going home. They felt more comfortable being evaluated by infectious disease team Continue cefazolin Objective - Vital Signs Vital signs: Vital Signs Temp 97.7 F 11/11/23 08:00 Pulse 70 11/11/23 14:30 Resp 16 11/11/23 11:35 BP 135/77 11/11/23 11:35 Pulse Ox 97 11/11/23 11:35 FiO2 Intake & Output 11/10/23 11/11/23 11/11/23 18:59 06:59 18:59 Intake Total 1196 1080 Output Total 400 575 Balance 796 -575 1080 Intake: Oral 1196 1080 Output: Urine 400 575 Other: Voiding Method Toilet Toilet Urinal Urinal # Voids 1 1 - Exam GENERAL: The patient is alert and oriented x3, not in any acute distress. Well developed, well nourished. HEENT: Pupils are round and equally reacting to light. EOMI. No scleral icterus. No conjunctival pallor. Normocephalic, atraumatic. No pharyngeal erythema. No thyromegaly. CARDIOVASCULAR: S1 and S2 present. No murmurs, rubs, or gallops. PULMONARY: Chest is clear to auscultation, no wheezing , no crackles. ABDOMEN: Soft, nontender, nondistended, normoactive bowel sounds. No palpable organomegaly. MUSCULOSKELETAL: No joint swelling or deformity. Left leg is -EXTREMITIES: No cyanosis, clubbing, or pedal edema. Left leg is swollen red and tender NEUROLOGICAL: Gross neurological examination did not reveal any focal deficits. SKIN: No rashes. no petechiae. - Labs CBC & Chem 7: 11/08/23 09:43 11/10/23 07:40 Assessment and Plan Assessment: Acute left leg cellulitis Chest pain, cardiac causes ruled out at resolved now Paroxysmal atrial fibrillation on Eliquis Hypertension Hyperlipidemia Coronary artery disease s/p stent Mild anemia Plan: Continue with Eliquis Continue with aspirin 81 mg Continue t cefazolin infectious disease consult Continue with antihypertensive medication recommended by origination specialist Pedro escoto Farxiga DVT prophylaxis on Eliquis GI prophylaxis Protonix Prognosis is guarded
--- NOTE | 2023-11-12 08:57 | P.CONS ---
History of Present Illness - Reason for Consult Consult date: 11/11/23 Cellulitis Requesting physician: Yobani E Melquiades - Chief Complaint Left leg swelling redness x few days - History of Present Illness Patient is a 73-year-old male with a past medical history significant for angina hypertension anxiety presenting to the hospital 4 days ago for evaluation of chest pain increasing shortness of breath patient also complaining of very weak send was getting worse for about 3 days before presentation to the hospital mostly chest pain on exertion and increasing shortness of breath patient admitted urgent care with the patient did have an EKG evidence of A-fib for the patient was advised to go to the hospital since then the patient has been evaluated and treated by cardiology services and has been treated medically patient did have a low-grade fever 100.3 on admission but no fever since then patient was noticed to have increasing swelling redness to the left lower extremity for the patient did have a left lower extremity Doppler that was negative for DVT patient was started on cefazolin infectious was consulted today for further management of antibiotic therapy. On today's evaluation that is 11/11/2023 patient denies having any fever or any chills mention breathing slightly comfortably denies any worsening chest pain or cough no nausea noting no abdominal pain still complaining of pain to the left lower extremity mostly dull aching 3-4 out of 10 no radiation/complaining of redness but no open wound or any drainage Past Medical History Past Medical History: Chest Pain / Angina, Hypertension Additional Past Medical History / Comment(s): states prior chest stenting History of Any Multi-Drug Resistant Organisms: None Reported Past Surgical History: Cholecystectomy, Orthopedic Surgery Additional Past Surgical History / Comment(s): rotator cuff left shoulder, Past Anesthesia/Blood Transfusion Reactions: No Reported Reaction Past Psychological History: Anxiety Smoking Status: Never smoker Past Alcohol Use History: Daily Additional Past Alcohol Use History / Comment(s): quit smoking at least 5 yrs ago, unsure when started Past Drug Use History: None Reported - Past Family History Mother Family Medical History: Cancer Brother(s) Family Medical History: Cancer Medications and Allergies Home Medications Medication Instructions Recorded Confirmed Type Apixaban [Eliquis] 5 mg PO BID 03/26/22 11/07/23 History Aspirin EC [Ecotrin Low Dose] 81 mg PO BID 03/26/22 11/07/23 History Atorvastatin Calcium [Lipitor] 40 mg PO DAILY 03/26/22 11/07/23 History Potassium Chloride [Klor-Con M10] 10 meq PO DAILY 03/26/22 11/07/23 History Cyanocobalamin (Vitamin B-12) 1,000 mcg PO DAILY 11/07/23 11/07/23 History [Vitamin B-12] Dapagliflozin Propanediol [Farxiga] 10 mg PO DAILY #30 tab 11/10/23 Rx Metoprolol Succinate (ER) [Toprol 50 mg PO DAILY #30 tab 11/10/23 Rx XL] Sacubitril/Valsartan [Entresto 24 1 each PO BID #60 tab 11/10/23 Rx mg-26 mg Tablet] Spironolactone [Aldactone] 25 mg PO DAILY #30 tab 11/10/23 Rx Allergies Allergy/AdvReac Type Severity Reaction Status Date / Time tramadol Allergy heart Verified 11/07/23 12:38 failure cyclobenzaprine AdvReac Nausea & Verified 11/07/23 12:38 [From Flexeril] Vomiting naproxen [From Naprosyn] AdvReac Nausea & Verified 11/07/23 12:38 Vomiting Physical Exam Vitals: Vital Signs Temp Pulse Resp BP Pulse Ox 11/11/23 11:35 70 16 135/77 97 11/11/23 08:00 97.7 F 79 16 116/71 11/11/23 04:00 98.1 F 79 16 154/82 95 11/11/23 02:00 83 17 11/11/23 00:00 97.9 F 83 17 142/76 97 11/10/23 20:00 75 19 97 11/10/23 19:00 98.2 F 75 17 148/77 97 11/10/23 16:00 62 16 121/75 96 11/10/23 14:30 68 Intake and Output 11/10/23 11/11/23 11/11/23 22:59 06:59 14:59 Intake Total 358 Output Total 375 200 Balance -17 -200 Intake: Oral 358 Output: Urine 375 200 Other: Voiding Method Toilet Toilet Toilet Urinal Urinal Urinal # Voids 1 Results CBC & Chem 7: 11/08/23 09:43 11/10/23 07:40 Assessment and Plan Plan: 1patient with acute left lower extremity swelling and redness in this patient admitted to the hospital with increasing shortness of breath and chest pain has been diagnosed with A-fib concerning for fluid overload and a component of cellulitis likely from gram-positive skin jenaro ultrasound was negative for any DVT 2-patient to continue with the cefazolin 2 g every 8 hour for another 24 hours and it shows overall improvement will be able to transition to oral Keflex, plan of care discussed with admitting physician Question concern answered We will follow on clinical condition and cultures to further adjust medication if needed Thank you for this consultation we will follow the patient along with you Dictation was produced using [employer] dictation software. please excuse any grammatical, word or spelling errors.
[2023-11-12 10:50] LABS: Basophils % (A) 0 %; Eosinophils # (A) 0.1 k/uL (0-0.7); Eosinophils % (A) 2 %; HCT 37.2 % (39.0-53.0); HGB 12.3 gm/dL (13.0-17.5); Lymphocytes # (A) 0.8 k/uL (1.0-4.8); Lymphocytes % (A) 8 %; MCH 33.3 pg (25.0-35.0); MCHC 33.2 g/dL (31.0-37.0); MCV 100.2 fL (80.0-100.0); Mean Platelet Volume 8.3; Monocytes # (A) 0.6 k/uL (0-1.0); Monocytes % (A) 6 %; Neutrophils # (A) 7.5 k/uL (1.3-7.7); Neutrophils % (A) 81 %; Platelet Count 249 k/uL (150-450); RBC 3.71 m/uL (4.30-5.90); WBC 9.3 k/uL (3.8-10.6)
[2023-11-12 12:43] LABS: ALT 16 U/L (4-49); AST 26 U/L (17-59); African American GFR (CKD) >90 (>60 ml/min/1.73 sqM); Albumin 2.7 g/dL (3.5-5.0); Alkaline Phosphatase 101 U/L (38-126); Anion Gap 7 mmol/L; Blood Urea Nitrogen 15 mg/dL (9-20); Calcium 8.1 mg/dL (8.4-10.2); Carbon Dioxide 23 mmol/L (22-30); Chloride 107 mmol/L (98-107); Glucose 116 mg/dL (74-99); Non-African American GFR(CKD) 81 (>60 ml/min/1.73 sqM); Potassium 3.7 mmol/L (3.5-5.1); Sodium 137 mmol/L (137-145); Total Bilirubin 0.6 mg/dL (0.2-1.3); Total Protein 5.4 g/dL (6.3-8.2)
--- NOTE | 2023-11-12 13:46 | P.PN ---
Subjective Progress Note Date: 11/12/23 This is a pleasant 73-year-old patient who used to follow with Dr. Hung. He thinks he now follows with Dr. Rowan. Chronic stable medical conditions include hypertension, hyperlipidemia, has known prior coronary with stent about 8 years ago. Follows with Dr. Bhandari as his data sme. This morning he developed pain across the chest while sitting in the morning. [place] a bit dizzy. Tired. Short of breath. No nausea no perspiration. Pain lateral focus quite some time. Patient not had any stress test recently November 07: Seen by cardiology today. Patient was switched from metoprolol to Toprol-XL 50. Lisinopril was discontinued and started on Entresto 24. Planning for cardiac catheterization tomorrow. Currently no chest pain. November 08: Patient underwent cardiac catheterization by Dr. Sebastian Bhandari. No significant disease. would like the patient to be held back today. Hopefully then can be discharged tomorrow. 11/10/2023 This is a pleasant 73 years old female who presents with dyspnea and some GI symptoms and chest pain, patient evaluated by data sme and they made some changes in her blood pressure medication by holding lisinopril and milligrams Continue with metoprolol and Entresto start Farxiga. Currently she is hemodynamically stable She has no fever. She has low-grade fever on admission which is resolved now BMP and liver enzymes were unremarkable Hemoglobin 12.8. WBCs 8 D-dimer is -0.3 Ejection fraction 45 to 50% chest x-ray is negative for acute process She is also on Normosol 50 mL/h, cefazolin Patient was cleared by data sme yesterday for discharge however the wanted and wished to stay 1 more night, this morning she is admitted in bed comfortable denies chest pain or dyspnea No other complaints However his left leg is swollen right and tender from the knee and below sparing the foot Patient and agreed send hospital for now Discussed with staff 11/11/2023 Patient still has cellulitis of the left lower extremity, partially improved. Continue monitoring Patient and at bedside do not feel comfortable going home. They felt more comfortable being evaluated by infectious disease team Continue cefazolin 11/11. Patient seen and examined. Complaining of right knee pain. Redness of left lower extremity has improved. Will consult orthopedic REVIEW OF SYSTEMS: CONSTITUTIONAL: No fever, no malaise,. CARDIOVASCULAR: No chest pain, no palpitations, no syncope. PULMONARY: No shortness of breath, no cough, GASTROINTESTINAL: No diarrhea, no nausea, no vomiting, no abdominal pain. NEUROLOGICAL: No headaches, no weakness, PHYSICAL EXAMINATION: GENERAL: The patient is alert and oriented x3, not in any acute distress. Well developed, well nourished. HEENT: Pupils are round and equally reacting to light. EOMI. No scleral icterus. No conjunctival pallor. Normocephalic, atraumatic. No pharyngeal erythema. No thyromegaly. CARDIOVASCULAR: S1 and S2 present. No murmurs, rubs, or gallops. PULMONARY: Chest is clear to auscultation, no wheezing or crackles. ABDOMEN: Soft, nontender, nondistended, normoactive bowel sounds. No palpable organomegaly. MUSCULOSKELETAL: No joint swelling or deformity. EXTREMITIES: No cyanosis, clubbing, or pedal edema. NEUROLOGICAL: Gross neurological examination did not reveal any focal deficits. SKIN: No rashes. Assessment and plan Acute left leg cellulitis Chest pain, cardiac causes ruled out at resolved now Paroxysmal atrial fibrillation on Eliquis Hypertension Hyperlipidemia Coronary artery disease s/p stent Mild anemia Monitor vital signs Monitor CBC Monitor CMP Continue telemetry monitoring Continue Entresto 24 mg - 26 mg Continue Aldactone 25 mg daily and Farxiga 10 mg daily Continue aspirin 81 mg daily and atorvastatin 40 mg daily Continue IV cefazolin Cardiology has cleared the patient for discharge ID following Consulted orthopedics for right knee pain Labs and medication were reviewed.. Continue same treatment. Continue with symptomatic treatment. Resume home medication. Monitor labs and vitals. DVT and GI prophylaxis. Further recommendations as per clinical course of the patient Dictation was produced using [employer] dictation software. please excuse any grammatical, word or spelling errors. Objective - Vital Signs Vital signs: Vital Signs Temp 98.0 F 11/11/23 20:00 Pulse 80 11/12/23 04:00 Resp 16 11/12/23 04:00 BP 135/80 11/12/23 04:00 Pulse Ox 96 11/12/23 04:00 FiO2 Intake & Output 11/11/23 11/12/23 11/12/23 18:59 06:59 18:59 Intake Total 1438 180 Output Total 900 Balance 1438 -900 180 Weight 94.8 kg Intake: Oral 1438 180 Output: Urine 900 Other: Voiding Method Toilet Toilet Urinal Urinal # Voids 1 - Labs CBC & Chem 7: 11/12/23 10:39 11/12/23 10:39
--- NOTE | 2023-11-12 15:40 | P.CNOR ---
History of Present Illness - [facility] Consult date: 11/12/23 Consult reason: joint pain (Right knee pain) History of present illness: Patient is a 73-year-old male who presented to [facility] on 11/07/2023 with shortness of breath and chest pain. Since being in the hospital, patient is being followed by multiple medical specialties, this to include internal medicine, cardiology and infectious disease. Patient is being treated for a left lower extremity cellulitis at this time. Patient was diagnosed with A-fib, he is on an oral anticoagulant at this time. Patient was evaluated at bedside today, his was present at bedside. Patient admits to swelling and discomfort of the right knee. He denies any recent trauma, he has not really been out of bed since when he came into the hospital. Patient has follow-up with Dr. Liriano in the outpatient setting for right knee issues, he has had a few different aspiration/cortisone injection procedures. He is also been on oral steroids for the right knee symptoms. Patient denies any previous surgery to the right knee. He denies any hip pain at this time. He denies any lower leg, foot or ankle pain at this time. Review of Systems Constitutional: Reports as per HPI Past Medical History Past Medical History: Chest Pain / Angina, Hypertension Additional Past Medical History / Comment(s): states prior chest stenting History of Any Multi-Drug Resistant Organisms: None Reported Past Surgical History: Cholecystectomy, Orthopedic Surgery Additional Past Surgical History / Comment(s): rotator cuff left shoulder, Past Anesthesia/Blood Transfusion Reactions: No Reported Reaction Past Psychological History: Anxiety Smoking Status: Never smoker Past Alcohol Use History: Daily Additional Past Alcohol Use History / Comment(s): quit smoking at least 5 yrs ago, unsure when started Past Drug Use History: None Reported - Past Family History Mother Family Medical History: Cancer Brother(s) Family Medical History: Cancer Medications and Allergies Home Medications Medication Instructions Recorded Confirmed Type Apixaban [Eliquis] 5 mg PO BID 03/26/22 11/07/23 History Aspirin EC [Ecotrin Low Dose] 81 mg PO BID 03/26/22 11/07/23 History Atorvastatin Calcium [Lipitor] 40 mg PO DAILY 03/26/22 11/07/23 History Potassium Chloride [Klor-Con M10] 10 meq PO DAILY 03/26/22 11/07/23 History Cyanocobalamin (Vitamin B-12) 1,000 mcg PO DAILY 11/07/23 11/07/23 History [Vitamin B-12] Dapagliflozin Propanediol [Farxiga] 10 mg PO DAILY #30 tab 11/10/23 Rx Metoprolol Succinate (ER) [Toprol 50 mg PO DAILY #30 tab 11/10/23 Rx XL] Sacubitril/Valsartan [Entresto 24 1 each PO BID #60 tab 11/10/23 Rx mg-26 mg Tablet] Spironolactone [Aldactone] 25 mg PO DAILY #30 tab 11/10/23 Rx Allergies Allergy/AdvReac Type Severity Reaction Status Date / Time tramadol Allergy heart Verified 11/07/23 12:38 failure cyclobenzaprine AdvReac Nausea & Verified 11/07/23 12:38 [From Flexeril] Vomiting naproxen [From Naprosyn] AdvReac Nausea & Verified 11/07/23 12:38 Vomiting Physical Examination Right lower extremity: No open lesions, sores, areas of erythema are present. There is a notable effusion present on the right knee Mild tenderness with palpation appreciated along the medial lateral joint line. Patient is nontender with palpation to the lower leg, foot or ankle. He is demonstrates no tenderness with palpation of the proximal femur this including the greater trochanteric region. He can actively flex and extend the knee, this does reproduce some discomfort after 90 degrees, passive range of motion reproduces very minimal discomfort. Logroll maneuver of the hip reproduces no groin pain. Plantarflexion, dorsiflexion, EHL, FHL are intact Calf is soft, no tenderness with palpation Sensory exam to light touch is intact throughout the extremity, no focal deficits Dorsalis pedis pulses 2+ Results - Labs Labs: Abnormal Lab Results - Last 24 Hours (Table) 11/12/23 11/12/23 Range/Units 10:39 10:39 RBC 3.71 L (4.30-5.90) m/uL Hgb 12.3 L (13.0-17.5) gm/dL Hct 37.2 L (39.0-53.0) % MCV 100.2 H (80.0-100.0) fL Lymphocytes # 0.8 L (1.0-4.8) k/uL Glucose 116 H (74-99) mg/dL Calcium 8.1 L (8.4-10.2) mg/dL Total Protein 5.4 L (6.3-8.2) g/dL Albumin 2.7 L (3.5-5.0) g/dL H & H 11/07/23 11/08/23 11/12/23 Range/Units 12:15 09:43 10:39 Hgb 12.8 L 12.4 L 12.3 L (13.0-17.5) gm/dL Hct 38.0 L 38.1 L 37.2 L (39.0-53.0) % Coagulation 11/07/23 11/08/23 Range/Units 12:15 09:43 INR 1.2 H 1.1 (<1.2) Result Diagrams: 11/12/23 10:39 11/12/23 10:39 - Diagnostic results Knee x-ray: report reviewed, image reviewed (Images of the right knee from 11/12/2023 reviewed. No acute fractures or dislocations appreciated. Knee effusion is evident. Mild osteoarthritic changes to the medial joint, this to i nclude loss of joint space) Assessment and Plan Assessment: Right knee pain Right knee effusion Right knee osteoarthritis Right knee internal derangement Multiple medical comorbidities Plan: I was able to discuss the case, this to include both physical exam findings and imaging studies my attending Dr. Liriano. No emergent orthopedic surgical intervention is recommended at this time Likely a arthritic exacerbation versus possible meniscal pathology causing the excess fluid. Low concern for septic arthritis at this time based on patient's clinical picture Would like the left lower extremity cellulitis to improve before considering an aspiration with cortisone injection into the right knee Conservative measures to include icing and elevating and use of either Tylenol or low-dose narcotics Weight-bear as tolerated GI and DVT prophylaxis per primary medical service Discharge planning: On orthopedic standpoint patient is stable, recommend follow-up in the outpatient setting with Dr. Liriano in the next 1 to 2 weeks Time with Patient: Less than 30
--- NOTE | 2023-11-12 16:40 | XR ---
EXAMINATION TYPE: XR knee complete RT DATE OF EXAM: 11/12/2023 3:08 PM CLINICAL INDICATION:Male, 73 years old with history of knee pain; H COMPARISON: None. TECHNIQUE: XR knee complete RT; examined in Frontal, lateral and oblique projections. FINDINGS/IMPRESSION: Soft tissue swelling around the knee in the prepatellar space with small joint effusion. No evidence of fracture. Further evaluation with MRI recommended. Mild degeneration changes with osteophyte forma tion joint space narrowing.
[2023-11-12] MEDS: ALPRAZolam 0.5 MG TAB PO PRN (21:23)
[2023-11-13 09:28] VITALS: BP 142/92; PULSE 95; RESP 16; TEMP 98.3
[2023-11-13 10:24] LABS: Basophils # (A) 0.1 k/uL (0-0.2); Basophils % (A) 1 %; Eosinophils # (A) 0.2 k/uL (0-0.7); Eosinophils % (A) 2 %; HCT 36.2 % (39.0-53.0); HGB 11.9 gm/dL (13.0-17.5); Lymphocytes # (A) 0.8 k/uL (1.0-4.8); Lymphocytes % (A) 10 %; MCH 32.9 pg (25.0-35.0); MCHC 32.8 g/dL (31.0-37.0); MCV 100.3 fL (80.0-100.0); Macrocytosis Slight; Mean Platelet Volume 8.1; Monocytes # (A) 0.8 k/uL (0-1.0); Monocytes % (A) 10 %; Neutrophils # (A) 5.9 k/uL (1.3-7.7); Neutrophils % (A) 73 %; Platelet Count 280 k/uL (150-450); RBC 3.61 m/uL (4.30-5.90); RDW 14.2 % (11.5-15.5)
[2023-11-13 10:42] LABS: ALT 12 U/L (4-49); AST 25 U/L (17-59); African American GFR (CKD) 89 (>60 ml/min/1.73 sqM); Albumin 2.7 g/dL (3.5-5.0); Alkaline Phosphatase 105 U/L (38-126); Anion Gap 10 mmol/L; Blood Urea Nitrogen 10 mg/dL (9-20); Calcium 8.2 mg/dL (8.4-10.2); Carbon Dioxide 21 mmol/L (22-30); Chloride 106 mmol/L (98-107); Glucose 104 mg/dL (74-99); Non-African American GFR(CKD) 77 (>60 ml/min/1.73 sqM); Potassium 3.8 mmol/L (3.5-5.1); Sodium 137 mmol/L (137-145); Total Bilirubin 0.6 mg/dL (0.2-1.3); Total Protein 5.4 g/dL (6.3-8.2)
--- NOTE | 2023-11-13 12:01 | P.PN ---
Subjective Progress Note Date: 11/12/23 Principal diagnosis: Reason for follow-up is left lower extremity cellulitis Patient is a 73-year-old male with a past medical history significant for angina hypertension anxiety presenting to the hospital for evaluation of chest pain increasing shortness of breath patient did have low-grade fever on admission and noticed evidence of left lower extremity cellulitis prompting this consultation. On today's visit that is 11/12/2023 patient is afebrile and has been breathing comfortably on room air left lower extremity redness decreased per the at the bedside patient complaining of mostly pain to the right knee area and apparently scheduled to have arthrocentesis done by Dr. Oneal this afternoon Patient white count is 9.3 creatinine 0.86 Objective - Vital Signs Vital signs: Vital Signs Temp 97.5 F L 11/12/23 08:55 Pulse 95 11/12/23 08:55 Resp 17 11/12/23 08:55 BP 126/79 11/12/23 08:55 Pulse Ox 98 11/12/23 08:55 FiO2 Intake & Output 11/11/23 11/12/23 11/12/23 18:59 06:59 18:59 Intake Total 1438 180 Output Total 900 Balance 1438 -900 180 Weight 94.8 kg Intake: Oral 1438 180 Output: Urine 900 Other: Voiding Method Toilet Toilet Toilet Urinal Urinal Urinal # Voids 1 - Exam GENERAL DESCRIPTION: An elderly male lying in bed in no distress RESPIRATORY SYSTEM: Unlabored breathing , decreased breath sounds at bases HEART: S1 S2 regular rate and rhythm , ABDOMEN: Soft , no tenderness EXTREMITIES: Right knee did have some swelling but no redness or warmth left leg redness has decreased - Labs CBC & Chem 7: 11/13/23 09:26 11/13/23 09:26 Labs: Abnormal Lab Results - Last 24 Hours (Table) 11/12/23 Range/Units 10:39 RBC 3.71 L (4.30-5.90) m/uL Hgb 12.3 L (13.0-17.5) gm/dL Hct 37.2 L (39.0-53.0) % MCV 100.2 H (80.0-100.0) fL Lymphocytes # 0.8 L (1.0-4.8) k/uL Assessment and Plan (1) Left leg cellulitis Status: Acute Code(s): L03.116 - CELLULITIS OF LEFT LOWER LIMB SNOMED Code(s): 72836876176652326 Plan: 1patient with acute left lower extremity swelling and redness in this patient admitted to the hospital with increasing shortness of breath and chest pain has been diagnosed with A-fib concerning for fluid overload and a component of cellulitis likely from gram-positive skin jenaro ultrasound was negative for any DVT 2-patient left lower extremity redness has improved to continue cefazolin finishing therapy with Keflex, however the patient complaining of more right knee pain and will benefit from Ortho evaluation and possible aspiration while in hospital this was discussed with the admitting team as well as with the Dictation was produced using [employer] dictation software. please excuse any gramma tical, word or spelling errors. Time with Patient: Less than 30
--- NOTE | 2023-11-13 12:03 | P.PN ---
Subjective Progress Note Date: 11/13/23 Principal diagnosis: Reason for follow-up is left lower extremity cellulitis Patient is a 73-year-old male with a past medical history significant for angina hypertension anxiety presenting to the hospital for evaluation of chest pain increasing shortness of breath patient did have low-grade fever on admission and noticed evidence of left lower extremity cellulitis prompting this consultation. On today's visit that is 11/13/2023, the patient continues to be afebrile, the patient is on room air and breathing comfortably, the Pt denies having any chest pain or cough, the patient denies having any abdominal pain no vomiting or any diarrhea, overall swelling redness of left leg has decreased in pain to the right hand slight decrease in intensity. Patient did have a white count of 8.0, creatinine 0.97 Objective - Vital Signs Vital signs: Vital Signs Temp 98.3 F 11/13/23 08:00 Pulse 95 11/13/23 08:00 Resp 16 11/13/23 08:00 BP 142/92 11/13/23 08:00 Pulse Ox 100 11/13/23 08:00 FiO2 Intake & Output 11/12/23 11/13/23 11/13/23 18:59 06:59 18:59 Intake Total 600 480 Output Total 200 900 Balance 400 -900 480 Intake: Oral 600 480 Output: Urine 200 900 Other: Voiding Method Toilet Toilet Urinal Urinal - Exam GENERAL DESCRIPTION: An elderly male lying in bed in no distress RESPIRATORY SYSTEM: Unlabored breathing , decreased breath sounds at bases HEART: S1 S2 regular rate and rhythm , ABDOMEN: Soft , no tenderness EXTREMITIES: Right knee swelling but no redness left leg redness improved - Labs CBC & Chem 7: 11/13/23 09:26 11/13/23 09:26 Labs: Abnormal Lab Results - Last 24 Hours (Table) 11/12/23 11/12/23 Range/Units 10:39 10:39 RBC 3.71 L (4.30-5.90) m/uL Hgb 12.3 L (13.0-17.5) gm/dL Hct 37.2 L (39.0-53.0) % MCV 100.2 H (80.0-100.0) fL Lymphocytes # 0.8 L (1.0-4.8) k/uL Glucose 116 H (74-99) mg/dL Calcium 8.1 L (8.4-10.2) mg/dL Total Protein 5.4 L (6.3-8.2) g/dL Albumin 2.7 L (3.5-5.0) g/dL Assessment and Plan (1) Left leg cellulitis Status: Acute Code(s): L03.116 - CELLULITIS OF LEFT LOWER LIMB SNOMED Code(s): 33324515479734042 Plan: 1patient with acute left lower extremity swelling and redness in this patient admitted to the hospital with increasing shortness of breath and chest pain has been diagnosed with A-fib concerning for fluid overload and a component of cellulitis likely from gram-positive skin jenaro ultrasound was negative for any DVT 2-patient left lower extremity cellulitis has shown clinical improvement with cefazolin for therapy with oral Keflex x 7 days discussed with admitting team patient has been evaluated for the right knee by orthopedic did not recommend a ny aspiration and wanted outpatient follow-up for possible steroid injection at the bedside question answered Dictation was produced using [employer] dictation software. please excuse any grammatical, word or spelling errors. Time with Patient: Less than 30
--- NOTE | 2023-11-13 12:32 | P.DS ---
Providers Date of admission: 11/07/23 14:24 Expected date of discharge: 11/13/23 Attending physician: Subhash River Consults: 11/07/23 13:34 Consult Physician Urgent Consulting Provider: Howard Frausto Consult Reason/Comments: New onset a-fib, chest pain Do you want consulting provider notified?: Yes 11/11/23 13:31 Consult Physician Routine Consulting Provider: Kyle Gray Consult Reason/Comments: cellulitis Do you want consulting provider notified?: Already Contacted 11/12/23 11:57 Consult Physician Routine Consulting Provider: Maverick Liriano Consult Reason/Comments: right knee inflammation Do you want consulting provider notified?: Yes [facility] care physician[facility] Hospital Course: Discharge diagnoses; Acute left leg cellulitis Chest pain, cardiac causes ruled out at resolved now Paroxysmal atrial fibrillation on Eliquis Hypertension Hyperlipidemia Coronary artery disease s/p stent Mild anemia Hospital course; This is a pleasant 73-year-old patient who used to follow with Dr. Hung. He thinks he now follows with Dr. Rowan. Chronic stable medical conditions include hypertension, hyperlipidemia, has known prior coronary with stent about 8 years ago. Follow[address] with Dr. Bhandari as his drafter cartographic. This morning he developed pain across the chest while sitting in the morning. [place] a bit dizzy. Tired. Short of breath. No nausea no perspiration. Pain lateral focus quite some time. Patient not had any stress test recently November 07: Seen by cardiology today. Patient was switched from metoprolol to Toprol-XL 50. Lisinopril was discontinued and started on Entresto 24. Planning for cardiac catheterization tomorrow. Currently no chest pain. November 08: Patient underwent cardiac catheterization by Dr. Sebastian Bhandari. No significant disease. would like the patient to be held back today. Hopefully then can be discharged tomorrow. 11/10/2023 This is a pleasant 73 years old female who presents with dyspnea and some GI symptoms and chest pain, patient evaluated by drafter cartographic and they made some changes in her blood pressure medication by holding lisinopril and milligrams Continue with metoprolol and Entresto start Farxiga. Currently she is hemodynamically stable She has no fever. She has low-grade fever on admission which is resolved now BMP and liver enzymes were unremarkable Hemoglobin 12.8. WBCs 8 D-dimer is -0.3 Ejection fraction 45 to 50% chest x-ray is negative for acute process She is also on Normosol 50 mL/h, cefazolin Patient was cleared by drafter cartographic yesterday for discharge however the wanted and wished to stay 1 more night, this morning she is admitted in bed comfortable denies chest pain or dyspnea No other complaints However his left leg is swollen right and tender from the knee and below sparing the foot Patient and agreed send hospital for now Discussed with staff 11/11/2023 Patient still has cellulitis of the left lower extremity, partially improved. Continue monitoring Patient and at bedside do not feel comfortable going home. They felt more comfortable being evaluated by infectious disease team Continue cefazolin 11/11. Patient seen and examined. Complaining of right knee pain. Redness of left lower extremity has improved. Will consult orthopedic 11/12. Patient seen and examined. Orthopedic eval the patient, recommended symp tomatic management and outpatient follow-up. ID recommend discharging patient on oral Keflex for 1 week. PHYSICAL EXAMINATION: GENERAL: The patient is alert and oriented x3, not in any acute distress. Well developed, well nourished. HEENT: Pupils are round and equally reacting to light. EOMI. No scleral icterus. No conjunctival pallor. Normocephalic, atraumatic. No pharyngeal erythema. No thyromegaly. CARDIOVASCULAR: S1 and S2 present. No murmurs, rubs, or gallops. PULMONARY: Chest is clear to auscultation, no wheezing or crackles. ABDOMEN: Soft, nontender, nondistended, normoactive bowel sounds. No palpable organomegaly. MUSCULOSKELETAL: Right knee swelling has improved. Left lower extremity erythema has improved with EXTREMITIES: No cyanosis, clubbing, or pedal edema. NEUROLOGICAL: Gross neurological examination did not reveal any focal deficits. SKIN: No rashes. Dictation was produced using [employer] dictation software. please excuse any grammatical, word or spelling errors. Patient Condition at Discharge: Fair Plan - Discharge Summary Discharge Rx Participant: Yes New Discharge Prescriptions: New Sacubitril/Valsartan [Entresto 24 mg-26 mg Tablet] 1 each PO BID #60 tab Dapagliflozin Propanediol [Farxiga] 10 mg PO DAILY #30 tab Spironolactone [Aldactone] 25 mg PO DAILY #30 tab Metoprolol Succinate (ER) [Toprol XL] 50 mg PO DAILY #30 tab Cephalexin [Keflex] 500 mg PO Q8HR 7 Days #21 cap Continue Potassium Chloride [Klor-Con M10] 10 meq PO DAILY Apixaban [Eliquis] 5 mg PO BID Atorvastatin Calcium [Lipitor] 40 mg PO DAILY Aspirin EC [Ecotrin Low Dose] 81 mg PO BID Cyanocobalamin (Vitamin B-12) [Vitamin B-12] 1,000 mcg PO DAILY Discontinued amLODIPine BESYLATE [Norvasc] 5 mg PO DAILY lisinopriL [Zestril] 20 mg PO DAILY Metoprolol Tartrate [Lopressor] 25 mg PO BID Discharge Medication List Apixaban [Eliquis] 5 mg PO BID 03/26/22 [History] Aspirin EC [Ecotrin Low Dose] 81 mg PO BID 03/26/22 [History] Atorvastatin Calcium [Lipitor] 40 mg PO DAILY 03/26/22 [History] Potassium Chloride [Klor-Con M10] 10 meq PO DAILY 03/26/22 [History] Cyanocobalamin (Vitamin B-12) [Vitamin B-12] 1,000 mcg PO DAILY 11/07/23 [History] Dapagliflozin Propanediol [Farxiga] 10 mg PO DAILY #30 tab 11/10/23 [Rx] Metoprolol Succinate (ER) [Toprol XL] 50 mg PO DAILY #30 tab 11/10/23 [Rx] Sacubitril/Valsartan [Entresto 24 mg-26 mg Tablet] 1 each PO BID #60 tab 11/10/23 [Rx] Spironolactone [Aldactone] 25 mg PO DAILY #30 tab 11/10/23 [Rx] Cephalexin [Keflex] 500 mg PO Q8HR 7 Days #21 cap 11/13/23 [Rx] Follow up Appointment(s)/Referral(s): Cj Hung DO [Primary Care Provider] - 1 Week (Please call office to schedule follow up appointment. ) Hector Bhandari MD [STAFF PHYSICIAN] - 1 Week (Please call office to schedule follow up appointment. ) Maverick Liriano MD [STAFF PHYSICIAN] - 1 Week Patient Instructions/Handouts: Heart Attack (DC), A-fib (Atrial Fibrillation) (DC), After Radial Heart Catheterization (GEN) Discharge Disposition: HOME SELF-CARE
--- NOTE | 2023-11-16 07:54 | CC ---
CARDIAC CATHETERIZATION REPORT INDICATIONS: Unstable angina. PROCEDURE: After obtaining informed consent, left heart catheterization and coronary angiogram were performed via the right radial artery using standard Sonny catheter. The patient tolerated the procedure well without any obvious immediate complications. The patient received moderate conscious sedation. Total sedation time was 20 minutes. Received heparin and verapamil per protocol. Right radial artery access was obtained using Seldinger technique, 6-Nigerien sheath was placed. Catheters and wires were floated into the ascending aorta under fluoroscopic guidance. A TR band was used for hemostasis. FINDINGS: 1. Hemodynamics: Left ventricular end-diastolic pressure is 12 to 14 mm. There is no significant gradient across the aortic valve. 2. Left Ventriculogram: Left ventriculogram is not performed. 3. Angiographic Data: a.Left main coronary artery is a normal-sized vessel and is free of stenosis. Divides into left anterior descending coronary artery and circumflex coronary artery. LAD was previously stented and the stent appears patent with mild nonobstructive disease. Circumflex coronary artery reveals mild disease, right coronary artery appears normal. CONCLUSIONS: Patent stent within the LAD. Mild nonobstructive disease involving circumflex coronary artery. PLAN: Patient's management is going to be in the form of optimal medical therapy. MMODL / IJN: [id number] / SHERRIE
== END 2023-11-13 11:33 | disposition home or self-care (01) | DRG 287 ==
LOC: EC 11:46 → 3SCARD 14:23 → OBSVTOIN 14:24 → 3SCARD 14:51
PROVIDERS: ADMIT Hospitalist; ATTEND Hospitalist
PROC: 4A023N7 Measurement of Cardiac Sampling and Pressure, Left Heart, Percutaneous Approach (ICD-10-PCS; principal; 2023-11-07)
PROC: B2111ZZ Fluoroscopy of Multiple Coronary Arteries using Low Osmolar Contrast (ICD-10-PCS; 2023-11-07)
DX: I48.21 Permanent atrial fibrillation (principal); I25.110 Atherosclerotic heart disease of native coronary artery with unstable angina pectoris; L03.116 Cellulitis of left lower limb; D64.9 Anemia, unspecified; E78.5 Hyperlipidemia, unspecified; F41.9 Anxiety disorder, unspecified; G47.00 Insomnia, unspecified; I08.3 Combined rheumatic disorders of mitral, aortic and tricuspid valves; I10 Essential (primary) hypertension; K59.00 Constipation, unspecified; M17.11 Unilateral primary osteoarthritis, right knee; M23.91 Unspecified internal derangement of right knee; Z79.01 Long term (current) use of anticoagulants; Z79.899 Other long term (current) drug therapy; Z79.84 Long term (current) use of oral hypoglycemic drugs; Z79.82 Long term (current) use of aspirin; Z95.5 Presence of coronary angioplasty implant and graft; Z88.5 Allergy status to narcotic agent; Z88.8 Allergy status to other drugs, medicaments and biological substances; Z90.49 Acquired absence of other specified parts of digestive tract
CPT/HCPCS: 36415; 71046; 80048; 80053; 83605; 83735; 83880; 84484; 85025; 85379; 85610; 85730; 93005; 93306; 93458; 96361; 96365; 96366; 99285